=== PATIENT | female | born 1970 | race Caucasian/White ===

== ENCOUNTER 2023-06-10 13:50 | Emergency (ER) | payer OTHER, SELFPAY ==
[2023-06-10 14:05] VITALS: BP 211/92; PULSE 70; RESP 18; TEMP 37.2; O2SAT 96; BMI 48.3
--- NOTE | 2023-06-10 14:16 | ECG_ITS ---
[facility] Test Date: 2023-06-10 Pat Name: NGHIA GRANDE Department: Room: - Gender: Female [employer]ic: : 1970 Requested By: LIANNA VINES Order Number: [id number] Reading MD: YADIEL LOBATO Measurements Intervals [place] Rate: 60 P: 46 DC: 170 QRS: -38 QRSD: 96 T: -46 QT: 406 QTc: 406 Interpretive Statements 1100 Sinus rhythm 2440 Incomplete right bundle branch block [address] depression [address] & Twave abnormality 5211 Minimal voltage criteria for LVH, may be normal variant 7200 Abnormal left axis deviation 9130 borderline ECG Compared to ECG 05/26/2018 12:45:48 Left ventricular hypertrophy now present ST (T wave) deviation still present Electronically Signed On 06-10-2023 22:47:16 EST by YADIEL LOBATO
--- NOTE | 2023-06-10 14:16 | XR_ITS ---
The [address] [address] Patient Name: NGHIA GRANDE MRN: [id number] date: 1970 Sex: F Assigned Patient Location: ER Current Patient Location: ER Accession/Order Number: [id number] Exam Date: 06/10/2023 14:35 Report Date: 06/10/2023 15:11 At the request of: MATILDA PROCTOR Procedure: XR chest 1V EXAMINATION: XR chest 1V HISTORY: HTN COMPARISON: No relevant comparison available. FINDINGS: LUNGS: No significant pulmonary parenchymal abnormalities. VASCULATURE: No increased pulmonary vasculature. PLEURA: No pneumothorax, effusion, or pleural thickening. CARDIAC: No cardiomegaly or cardiac silhouette abnormality. MEDIASTINUM: No visible mass or adenopathy. BONES: No fracture or visible bone lesion. OTHER: Negative. XR/XR chest 1V IMPRESSION: 1. No acute or suspicious findings to account for patient's symptoms. Electronically authenticated by: BHARATH BOSTON Date: 06/10/2023 15:11
[2023-06-10 14:17] VITALS: BP 180/90
--- NOTE | 2023-06-10 14:18 | ED_ITS ---
HPI - Epistaxis General Chief Complaint: Epistaxis Stated Complaint: CONGESTION/NOSE BLEEDING Time Seen by Provider: 06/10/23 14:13 Source: patient Mode of arrival: walk-in Limitations: no limitations Related Data Home Medications Medication Instructions Recorded Confirmed atenolol 100 mg tablet 100 mg PO Q12H 06/10/23 06/10/23 hydrochlorothiazide 25 mg tablet 25 mg PO Q24H 06/10/23 06/10/23 Allergies Allergy/AdvReac Type Severity Reaction Status Date / Time ketorolac [From Toradol] AdvReac Mild hot flash Verified 06/10/23 14:10 Penicillins AdvReac Unknown Verified 06/10/23 14:10 Review of Systems ROS Narrative 52 year old female presents to the ED fo r epistaxis. Onset was this afternoon. Her BP was elevated upon arrival. States she has been under a lot of stress. States she has been taking her BP medication as directed. Denies BENITEZ, vision changes, weakness, dizziness. Denies CP, SOB, back pain. Constitutional Denies: fever or chills Ears, nose, mouth, and throat Reports: nasal congestion and nose bleeds; Denies: throat pain, neck pain, ear pain or ear discharge Cardiovascular Denies: chest pain, palpitations, edema, swelling of feet/ankles or lightheadedness Respiratory Denies: shortness of breath or cough Gastrointestinal Denies: abdominal pain, nausea, vomiting or diarrhea Musculoskeletal Denies: back pain or neck pain Neurological Denies: headache, numbness in extremities, weakness in extremities, lack of coordination, dizziness or slurred speech PFSH PFSH Social History Smoking status: Former smoker Exam Constitutional Vital Signs, click to edit/add: Last Vital Signs Temp 99.0 F 06/10/23 14:05 Pulse 70 06/10/23 14:05 Resp 18 06/10/23 14:05 BP 140/69 06/10/23 15:22 Pulse Ox 96 06/10/23 14:05 O2 Del Method Room Air 06/10/23 14:05 Common normals: no apparent distress and oriented x3 General appearance: cooperative [facility] Common normals: normocephalic Face and sinus: normal facial exam Nose: epistaxis (No active bleeding. Likely epistaxis site noted to left medial nare.) External ear: external ears normal Mouth: oral and palatal mucosa normal, lip normal and tongue normal Throat: posterior oropharynx normal and uvula midline Eye Common normals: PERRL, EOMs intact bilaterally, conjunctivae normal and no scleral icterus Neck & C-Spine Common normals: supple Chest Chest: symmetrical chest wall rise Respiratory Common normals: normal respiratory effort Effort & inspection: able to speak in complete sentences and symmetric chest movement Cardio Common normals: regular rate and regular rhythm Neuro Common normals: oriented x3 and CN's II-XII intact bilaterally Sensorium/orientation: awake and alert Speech: speech normal Gait (neuro): normal gait Motor exam: strength 5/5 throughout Course Vital Signs Vital signs: Vital Signs Temperature 99.0 F 06/10/23 14:05 Pulse Rate 70 06/10/23 14:05 Respiratory Rate 18 06/10/23 14:05 Blood Pressure 211/92 H 06/10/23 14:05 Pulse Oximetry 96 06/10/23 14:05 Oxygen Delivery Method Room Air 06/10/23 14:05 Temperature 99.0 F 06/10/23 14:05 Pulse Rate 70 06/10/23 14:05 Respiratory Rate 18 06/10/23 14:05 Blood Pressure 140/69 06/10/23 15:22 Pulse Oximetry 96 06/10/23 14:05 Oxygen Delivery Method Room Air 06/10/23 14:05 MDM - Epistaxis MDM Narrative Medical decision making narrative: Silver nitrate was utilized to cauterize an area in the left nare. She tolerated it well. She was given IV hydralazine with improvement in her BP. Laboratory studies were unremarkable. She was encouraged to take her BP medication as directed. Follow up with pcp and ENT for a recheck, further evaluation and treatment. Medical Records Attestation: I reviewed the patient's medical records. Lab Data Attestation: I reviewed the patient's lab results. Labs: Lab Results 06/10/23 Range/Units 14:25 WBC 6.7 (4.0-11.0) 10^3/uL RBC 4.48 (4.20-5.40) 10^6/uL Hgb 14.5 (12.0-16.0) g/dL Hct 42.7 (36.0-48.0) % MCV 95.3 (81.0-99.0) fL MCH 32.4 (26.7-34.0) pg MCHC 34.0 (29.9-35.2) g/dL RDW 11.5 (11.0-15.0) % Plt Count 195 (150-450) 10^3/uL MPV 13.0 (9.5-13.5) fL Neut % (Auto) 75.6 H (43.0-75.0) % Lymph % (Auto) 14.8 L (20.5-60.0) % [place] % (Auto) 8.2 (1.7-12.0) % Eos % (Auto) 1.0 (0.9-7.0) % Baso % (Auto) 0.3 (0.2-2.0) % Neut # (Auto) 5.1 (1.4-6.5) 10^3/uL Lymph # (Auto) 1.0 L (1.2-3.8) 10^3/uL [place] # (Auto) 0.6 (0.3-0.8) 10^3/uL Eos # (Auto) 0.1 (0.0-0.7) 10^3/uL Baso # (Auto) 0.0 (0.0-0.1) 10^3/uL Abs Immat Gran (auto) 0.01 (0.00-0.03) 10^3/uL Imm/Tot Granulo (auto) 0.1 (0.0-0.5) % Sodium 134 L (136-145) mmol/L Potassium 4.5 (3.5-5.1) mmol/L Chloride 101 (98-107) mmol/L Carbon Dioxide 27.5 (21.0-32.0) mmol/L Anion Gap 10.0 BUN 13.0 (7.0-18.0) mg/dL Creatinine 0.81 (0.55-1.02) mg/dL Est GFR ( Amer) >60 (>=60) Est GFR (Non-Af Amer) >60 (>=60) BUN/Creatinine Ratio 16.0 Glucose 280 H (74-106) mg/dL Calcium 9.1 (8.5-10.1) mg/dL Total Bilirubin 0.4 (0.2-1.0) mg/dL AST 30 (15-37) U/L ALT 37 (14-59) U/L Alkaline Phosphatase 103 (46-116) U/L Total Protein 7.5 (6.4-8.2) g/dL Albumin 3.0 L (3.4-5.0) g/dL Globulin 4.5 g/dL Albumin/Globulin Ratio 0.7 Imaging Data Chest x-ray: Attestation: I have reviewed the pertinent imaging results. Radiologist's impression: ITS Impressions Chest X-Ray 06/10/23 14:16 IMPRESSION: 1. No acute or suspicious findings to account for patient's symptoms. Electronically authenticated by: BHARATH BOSTON Date: 06/10/2023 15:11 ECG Data Attestation: ?I have reviewed the pertinent ECG results. Interpretation: Measurements Intervals [place] Rate: 60 P: 46 MN: 170 QRS: -38 QRSD: 96 T: -46 QT: 406 QTc: 406 Interpretive Statements 1100 Sinus rhythm 2440 Incomplete right bundle branch block [address] depression [address] & Twave abnormality 5211 Minimal voltage criteria for LVH, may be normal variant 7200 Abnormal left axis deviation 9130 borderline ECG No previous ECG available for comparison Critical Care Time Critical Care Time Critical Care Time: Yes Total Critical Care Time: 30 Attestation: Due to the high probability of sudden and clinically significant deterioration in the patient's condition she required the highest level of my preparedness to intervene urgently I provided critical care time including documentation time, medication orders and management, reevaluation, vital sign assessment, ordering and reviewing of lab tests, ordering and reviewing of x-ray studies, and admission orders. Discharge Plan Discharge Chief Complaint: Epistaxis Clinical Impression: Epistaxis, Hypertension Patient Disposition: Home, Self-Care Time of Disposition Decision: 15:26 Condition: Good Mode of Transportation: Private Vehicle Prescriptions / Home Meds: No Action atenolol 100 mg tablet 100 mg PO Q12H hydrochlorothiazide 25 mg tablet 25 mg PO Q24H Instructions: Nosebleed (ED), Hypertension (ED) Stand Alone Forms: Portal Instructions Referrals: LIANNA VINES [Primary Care Provider] - 1 week Francisca Conrad MD [Physician] - 1 week Discharge Date/Time: 06/10/23 15:37
[2023-06-10 14:37] LABS: Basophils Percent Auto 0.3 % (0.2-2.0); Eosinophils Absolute Auto 0.1 10^3/uL (0.0-0.7); Hematocrit 42.7 % (36.0-48.0); Hemoglobin 14.5 g/dL (12.0-16.0); Immature Granulocytes Abs Auto 0.01 10^3/uL (0.00-0.03); Immature Granulocytes Pct Auto 0.1 % (0.0-0.5); Lymphocytes Percent Auto 14.8 % (20.5-60.0); Mean Corpuscular Hemoglobin 32.4 pg (26.7-34.0); Mean Corpuscular Volume 95.3 fL (81.0-99.0); Monocytes Absolute Auto 0.6 10^3/uL (0.3-0.8); Monocytes Percent Auto 8.2 % (1.7-12.0); Neutrophils Absolute Auto 5.1 10^3/uL (1.4-6.5); Neutrophils Percent Auto 75.6 % (43.0-75.0); Platelet Count 195 10^3/uL (150-450); Red Blood Count 4.48 10^6/uL (4.20-5.40); Red Cell Distribution Width 11.5 % (11.0-15.0); White Blood Count 6.7 10^3/uL (4.0-11.0)
[2023-06-10] MEDS: HYDRALAZINE HCL 20 MG/ML VIAL 10 MG IVP (14:38)
[2023-06-10] MEDS: SILVER NITRATE APPLICATOR STICK 1 APPLIC TOPICAL (14:38)
[2023-06-10 14:45] VITALS: BP 156/88
[2023-06-10 14:50] LABS: Alanine Aminotransferase 37 U/L (14-59); Albumin Globulin Ratio 0.7; Alkaline Phosphatase 103 U/L (46-116); Aspartate Amino Transferase 30 U/L (15-37); Bilirubin Total 0.4 mg/dL (0.2-1.0); Calcium 9.1 mg/dL (8.5-10.1); Carbon Dioxide 27.5 mmol/L (21.0-32.0); Chloride 101 mmol/L (98-107); Estimated GFR (African America >60 (>=60); Estimated GFR (Non-African Ame >60 (>=60); Globulin 4.5 g/dL; Glucose 280 mg/dL (74-106); Potassium 4.5 mmol/L (3.5-5.1); Sodium 134 mmol/L (136-145); Total Protein 7.5 g/dL (6.4-8.2)
[2023-06-10 15:22] VITALS: BP 140/69
== END 2023-06-10 15:37 | disposition home or self-care (01) ==
PROVIDERS: Nurse Practitioner Family; Emergency Provider Emergency Medicine; PCP Family Medicine
DX: R04.0 Epistaxis (principal); I10 Essential (primary) hypertension; Z87.891 Personal history of nicotine dependence
CPT/HCPCS: 30901; 36415; 71045; 80053; 85025; 93005; 96374; 99285; J0360

== ENCOUNTER 2024-04-07 17:47 | Emergency (ER) | payer OTHER, SELFPAY ==
[2024-04-07 17:48] VITALS: BP 129/89; PULSE 76; TEMP 37.1; O2SAT 96; BMI 39.1
--- NOTE | 2024-04-07 17:49 | ECG_ITS ---
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
--- OUTSIDE RECORDS SUMMARY | 2024-04-07 17:55 | XMS_ITS | CCD ---
Author Organization [facility] Care Team Providers Care Barrel Inspector Tight Name Role Phone LIANNA VINES Primary Care Unavailable PAY, KAMRAN Admitting Unavailable PAY, KAMRAN Attending Unavailable LIANNA TRAN V Consulting Unavailable PAY, KAMRAN Consulting Unavailable REJI, SAUL Consulting Unavailable DO Lianna Vines Primary Care Provider [phone] JJ Ravi Emergency Provider Community, Outreach Attending Provider [phone] Lianna Vines Unavailable Lianna Vines Primary Care Unavailable Community, Outreach Attending Unavailable Community, Outreach Admitting Unavailable Allergies Allergy Classification Reported Allergen(s) Allergy Type Date of Onset Reaction(s) Facility (20 sources) Ketorolac Drug Allergy 7 blotchy skin [facility] Repository (4 sources) Penicillins Drug allergy (disorder) 7 Unknown Reaction, Unknown Reaction, hives [facility] Repository (4 sources) Ketorolac; Translations: [ketorolac] Drug Allergy 2 Unknown Reaction, Unknown Reaction, blotchy skin [facility] (20 sources) [facility] ([facility]) Penicillins Drug allergy (disorder) 2 [facility] Repository Medications Current Medications Medication Drug Class(es) Dates Sig (Normalized) Sig (Original) ALPRAZolam 0.25 mg oral tablet (20 sources) Benzodiazepine Start: 06-19-2023 End: 08-21-2023 Alprazolam (Xanax) 0.25 mg tablet Active 0.25 MG PO EVERY 8-12 HOURS August 21, 2023 9:14am Start: 05-28-2011 Xanax 0.25 MG 1 tablet Orally q 8-12 hours prn anxiety for 7 days May, Active Aspir-81 81 MG (20 sources) take 1 tablet by mouth once daily Aspir-81 81 MG 1 tablet Orally Once a day Active aspirin 81 mg delayed release oral tablet (2 sources) Platelet Aggregation Inhibitor, Nonsteroidal Anti-inflammatory Drug Start: 06-19-2023 take 1 tablet by mouth once daily Aspirin Active 81 MG PO Daily June 19, 2023 1:00am FreeTextSi tablet Orally Once a day; Note: Source Status: Taking; Provider: Marie Pop ( ) atenolol 100 mg oral tablet (20 sources) beta-Adrenergic Roamna Start: 08-21-2023 take 100 mg by mouth once daily Atenolol Active 100 MG PO Daily August 21, 2023 9:31am Start: 07-21-2023 End: 08-21-2023 take 2 tablets by mouth once daily Atenolol Discontinued 0 .ROUTE .COMPLEX 180 July 21, 2023 1:20pm August 21, 2023 9:33am TAKE 2 TABLETS BY MOUTH DAILY Start: 06-19-2023 End: 07-21-2023 take 2 tablets by mouth once daily Atenolol Discontinued 0 PO Daily June 19, 2023 12:09pm July 21, 2023 1:20pm take 2 of the 100 MG tablets together orally daily; Start: 03-20-2021 End: 06-19-2023 take 200 mg by mouth once daily Atenolol Discontinued 200 MG PO Daily March 20, 2021 1:00am June 19, 2023 12:10pm take 2 tablets by mo [facility] once daily Atenolol 100 MG Take 2 tablets by mouth once daily for 90 days Active docosahexaenoic acid 144 mg / eicosapentaenoic acid 216 mg / vitamin e 2 unt oral capsule (2 sources) Start: 06-19-2023 take 2 capsules by mouth once daily Dodge-3 Fatty Acids-Fish Oil (Fish Oil) 360-1,200 mg capsule Active 2 CAP PO Daily June 19, 2023 1:00am ferrous sulfate 325 mg delayed release oral tablet (20 sources) Start: 06-19-2023 End: 08-21-2023 take 325 mg by mouth once daily Ferrous Sulfate Active 325 MG PO Daily August 21, 2023 9:14am Start: 10-31-2016 take 2 tablets by mo [facility] every twenty-four hours Ferrous Sulfate 325 (65 Fe) MG 2 tablets Orally Once a day Oct, Active Start: 10-31-2016 take 2 tablets by mouth once d aily Ferrous Sulfate 325 (65 Fe) MG 2 tablets Orally Once a day Oct, Active Fish Oils (20 sources) Fish Oil Active hydroCHLOROthiazide 25 mg oral tablet (20 sources) Thiazide Diuretic Start: take 1 tablet by mouth once daily as needed Hydrochlorothiazide Active 0 .ROUTE .COMPLEX 90 September 29, 2023 1:07pm TAKE 1 TABLET BY MOUTH DAILY NEEDED Start: 10-23-2015 End: 09-29-2023 take 25 mg by mouth once daily Hydrochlorothiazide Discontinued 25 MG PO Daily March 20, 2021 1:00am September 29, 2023 1:07pm Magnesium (4 sources) Start: 08-21-2023 take 500 mg by mouth once daily Magnesium Active 500 MG PO Daily August 21, 2023 9:15am Start: 06-19-2023 End: 08-21-2023 take 250 mg by mouth twice daily Magnesium Discontinued 250 MG PO Twice daily June 19, 2023 1:00am August 21, 2023 9:18am Multivitamin preparation (20 sources) Start: 06-19-2023 take 1 tablet by mouth once daily Multivitamin Active 1 TAB PO Daily June 19, 2023 1:00am Multivitamin Act lucia valsartan 320 mg oral tablet (20 sources) Angiotensin 2 Receptor Romana Start: 08-21-2023 take 320 mg by mouth once daily Valsartan Active 320 MG PO Daily August 21, 2023 9:33am Start: 07-21-2023 End: 08-21-2023 take 1 tablet by mouth once daily Valsartan Discontinued 0 .ROUTE .COMPLEX July 21, 2023 1:20pm August 21, 2023 9:33am TAKE 1 TABLET BY MOUTH DAILY Start: 06-10-2023 End: 07-21-2023 take 1 tablet by mouth once daily Valsartan Discontinued 320 MG PO Daily June 19, 2023 12:09pm July 21, 2023 1:20pm FreeTextSi tablet Orally Once a day; Note: Source Status: Refill; Refills: 1; Qty: 90 Tablet; Provider: Marie Cruz Start: 03-26-2021 take 1 tablet by epi th every twenty-four hours Valsartan 320 MG 1 tablet Orally Once a day for 90 days Mar, Active Start: 03-26-2021 take 1 tablet by epi th every twenty-four hours Valsartan 160 MG 1 tablet Orally Once a day for 30 day(s) Mar, Active Start: 03-26-2021 take 1 tablet by epi th every twenty-four hours Valsartan 80 MG 1 tablet Orally Once a day for 30 day(s) Mar, Active vitamin B12 (11 sources) Vitamin B12 Start: 08-21-2023 take 3000 ug by mouth once daily Cyanocobalamin (Vitamin B-12) Active 3000 MCG PO Daily August 21, 2023 12:00am Vitamin B12 Acti ve vitamin e 450 mg oral capsule (20 sources) Start: 06-19-2023 take 670 mg by mouth once daily Vitamin E Active 670 MG PO Daily June 19, 2023 1:00am Vitamin E Active Completed/Discontinued Medications Medication Drug Class(es) Dates Sig (Normalized) Sig (Original) azithromycin 250 mg oral tablet (5 sources) Macrolide Antimicrobial Start: 10-31-2016 Zithromax Z-Pradip 250 MG 2 tablets on the first day, then 1 tablet daily for 4 days Orally Once a day for 5 day(s) Oct, Not-Taking cephalexin 500 mg oral capsule (3 sources) Cephalosporin Antibacterial Start: 06-03-2021 End: 06-19-2023 take 1000 mg by mouth twice daily Cephalexin Discontinued 1000 MG PO Twice daily 40 June 03, 2021 1:00am June 19, 2023 11:46am clotrimazole 10 mg oral lozenge (2 sources) Azole Antifungal Start: 06-11-2023 End: 06-12-2023 Clotrimazole Discontinued 0 PO Five times daily 35 June 11, 2023 1:00am June 12, 2023 9:05am dissolve one 10 MG wally on the tongue orally five times daily; FLUoxetine 20 mg oral capsule (20 sources) Serotonin Reuptake Inhibitor Start: 03-20-2021 End: 06-19-2023 take 40 mg by mouth once daily Fluoxetine Discontinued 40 MG PO Daily March 20, 2021 1:00am June 19, 2023 11:46am Start: 10-23-2015 take 1 capsule by mo [facility] every twenty-four hours PROzac 40 MG 1 capsule in the morning Orally Once a day Oct, Active predniSONE 20 mg oral tablet (5 sources) predniSONE 20 MG as directed with food Orally 3 a day for 3 days, then 2 a day for 3 days, then 1 a day for 3 days for 9 days Not-Taking Problems Active Problems Problem Classification Problem Date Documented Da te Episodic/Chronic Anxiety disorders (20 sources) Anxiety; Translations: [Anxiety disorder, unspecified] Onset: 03-26-2021 Resolved: 01-02-2022 Chronic Cardiac dysrhythmias (7 sources) Palpitations; Translations: [Palpitations] Onset: 05-28-2018 Resolved: 06-06-2021 06-03-2021 Episodic Diabetes mellitus with complications (3 sources) Type II diabetes mellitus uncontrolled; Translations: [Uncontrolled type 2 diabetes mellitus] 08-21-2023 Chronic Diabetes mellitus without complication (8 sources) Hyperglycemia, unspecified; Translations: [Hyperglycemia] Onset: 03-26-2021 Resolved: 05-08-2021 Episodic Essential hypertension (20 sources) Hypertensive disorder; Translations: [Essential (primary) hypertension] Onset: 03-26-2021 Resolved: 11-26-2021 06-03-2021 Chronic Heart valve disorders (20 sources) Mitral valve prolapse; Translations: [Nonrheumatic mitral (valve) prolapse] Onset: 03-26-2021 Resolved: 05-08-2021 Chronic Nonspecific chest pain (4 sources) Chest pain, unspecified; Translations: [CHEST PAIN UNSPECIFIED] Onset: 05-26-2018 Episodic Other nutritional; endocrine; and metabolic disorders (2 sources) Abnormal weight loss; Translations: [Loss of weight] Onset: 03-26-2021 Resolved: 03-26-2021 Episodic Other nutritional; endocrine; and metabolic disorders (4 sources) Abnormal weight gain Onset: 05-08-2021 Resolved: 11-26-2021 Episodic Other nutritional; endocrine; and metabolic disorders (2 sources) Weight loss; Translations: [Abnormal weight loss] 06-19-2023 Episodic Other screening for suspected conditions (not mental disorders or infectious disease) (2 sources) Encounter for screening mammogram for malignant neoplasm of breast; Translations: [Encounter for screening for malignant neoplasm of colon] Episodic Other upper respiratory disease (2 sources) Bleeding from nose; Translations: [Epistaxis] 06-19-2023 Episodic Other upper respiratory disease (1 source) Epistaxis; Translations: [Epistaxis] 06-19-2023 Episodic Unclassified (2 sources) Intentional weight loss; Translations: [Intentional weight loss] 11-24-2023 Urinary tract infections (4 sources) Urinary tract infectious disease; Translations: [Urinary tract infection, site not specified] Onset: 06-06-2021 Resolved: 06-06-2021 06-03-2021 Episodic Past or Other Problems Problem Classification Problem Date Documented Da te Episodic/Chronic Disorders of teeth and jaw (1 source) Periapical abscess without sinus Onset: 05-16-2021 Resolved: 05-16-2021 Episodic Other aftercare (1 source) Other intermediate (current) drug therapy Onset: 05-08-2021 Resolved: 05-08-2021 Episodic Other lower respiratory disease (1 source) Snoring Onset: 06-06-2021 Resolved: 06-06-2021 Episodic Other upper respiratory disease (1 source) Nasal congestion Onset: 05-16-2021 Resolved: 05-16-2021 Episodic Other upper respiratory disease (1 source) Other specified disorders of nose and nasal sinuses Onset: 05-16-2021 Resolved: 05-16-2021 Episodic Unclassified (1 source) Cough R05.9 Onset: 05-16-2021 Resolved: 05-16-2021 Results Test Name Value Interpretation Reference Range Facility Glucose mean value [Mass/vol ume] in Blood Estimated from glycated hemoglobinon 11-18-2023 Average glucose Estimated from glycated hemoglobin (Bld) [Mass/Vol] 111 mg/dL [facility] - Hematology and Cell countson 11-18-2023 HbA1c (Bld) [Mass fraction] 5.5 % 4.5-6.2 [facility] Comment on above: ADA RECOMMENDED LIMI T 4.0 - 6.0ADA THERAPEUTIC TARGET < 7.0ACTION SUGGESTED> 7.0 Glucose mean value [Mass/vol ume] in Blood Estimated from glycated hemoglobinon 08-15-2023 Average glucose Estimated from glycated hemoglobin (Bld) [Mass/Vol] 148 mg/dL [facility] - Hematology and Cell countson 08-15-2023 HbA1c (Bld) [Mass fraction] 6.8 % 4.5-6.2 [facility] Comment on above: ADA RECOMMENDED LIMI T 4.0 - 6.0ADA THERAPEUTIC TARGET < 7.0ACTION SUGGESTED> 7.0 Basophils Auto (Bld) [#/Vol] on 06-10-2023 Basophils (Bld) [#/Vol] 0.0 10 3/uL 0.0-0.1 [facility] Basophils/100 WBC Auto (Bld) on 06-10-2023 Basophils/100 WBC (Bld) 0.3 % 0.2-2.0 [facility] Eosinophils/100 WBC Auto (Bl d)on 06-10-2023 Eosinophils/100 WBC (Bld) 1.0 % 0.9-7.0 [facility] Erythrocyte distribution wid th Auto (RBC) [Ratio]on 06-10-2023 Erythrocyte distribution width (RBC) [Ratio] 11.5 % 11.0-15.0 [facility] Estimated glomerular filtrat ion rate (GFR) non- Americanon 06-10-2023 GFR/1.73 sq M.predicted among non-blacks MDRD (S/P/Bld) [Vol rate/Area] mL/min/{1.73_m2} >=60 [facility] Globulin Calc (S) [Mass/Vol] on 06-10-2023 Globulin (S) [Mass/Vol] 4.5 g/dL [facility] Hematocrit Auto (Bld) [Volum e fraction]on 06-10-2023 Hematocrit (Bld) [Volume fraction] 42.7 % 36.0-48.0 [facility] Hemoglobin [Mass/volume] in Bloodon 06-10-2023 Hemoglobin (Bld) [Mass/Vol] 14.5 g/dL 12.0-16.0 [facility] Laboratory - Chemistry and C hemistry - challengeon 06-10-2023 Albumin [Mass/Vol] 3.0 g/dL 3.4-5.0 [facility] ALP [Catalytic activity/Vol] 103 U/L 46-116 [facility] ALT [Catalytic activity/Vol] 37 U/L 14-59 [facility] AST [Catalytic activity/Vol] 30 U/L 15-37 [facility] Bilirubin [Mass/Vol] 0.4 mg/dL 0.2-1.0 [facility] Calcium [Mass/Vol] 9.1 mg/dL 8.5-10.1 [facility] Chloride [Moles/Vol] 101 mmol/L 98-107 [facility] CO2 [Moles/Vol] 27.5 mmol/L 21.0-32.0 [facility] Creatinine [Mass/Vol] 0.81 mg/dL 0.55-1.02 [facility] GFR/1.73 sq M.predicted MDRD (S/P/Bld) [Vol rate/Area] mL/min/{1.73_m2} >=60 [facility] Glucose [Mass/Vol] 280 mg/dL 74-106 [facility] Potassium [Moles/Vol] 4.5 mmol/L 3.5-5.1 [facility] Protein [Mass/Vol] 7.5 g/dL 6.4-8.2 [facility] Sodium [Moles/Vol] 134 mmol/L 136-145 [facility] Urea nitrogen [Mass/Vol] 13.0 mg/dL 7.0-18.0 [facility] Urea nitrogen/Creatinine [Mass ratio] 16.0 mg/mg [facility] - Hematology and Cell countson 06-10-2023 Immature granulocytes/100 WBC (Bld) 0.1 % 0.0-0.5 [facility] Leukocytes [#/volume] correc kelvin for nucleated erythrocytes in Blood by Automated counon 06-10-2023 WBC corrected for nucl RBC Auto (Bld) [#/Vol] 6.7 10 3/uL 4.0-11.0 [facility] Lymphocytes Auto (Bld) [#/Vo l]on 06-10-2023 Lymphocytes (Bld) [#/Vol] 1.0 10 3/uL 1.2-3.8 [facility] Lymphocytes/100 WBC Auto (Bl d)on 06-10-2023 Lymphocytes/100 WBC (Bld) 14.8 % 20.5-60.0 [facility] MCH Auto (RBC) [Entitic mass ]on 06-10-2023 MCH (RBC) [Entitic mass] 32.4 pg 26.7-34.0 [facility] MCHC Auto (RBC) [Mass/Vol]on 06-10-2023 MCHC (RBC) [Mass/Vol] 34.0 g/dL 29.9-35.2 [facility] MCV Auto (RBC) [Entitic vol] on 06-10-2023 MCV (RBC) [Entitic vol] 95.3 fL 81.0-99.0 [facility] Monocytes Auto (Bld) [#/Vol] on 06-10-2023 Monocytes (Bld) [#/Vol] 0.6 10 3/uL 0.3-0.8 [facility] Monocytes/100 WBC Auto (Bld) on 06-10-2023 Monocytes/100 WBC (Bld) 8.2 % 1.7-12.0 [facility] Neutrophils Auto (Bld) [#/Vo l]on 06-10-2023 Neutrophils (Bld) [#/Vol] 5.1 10 3/uL 1.4-6.5 [facility] Neutrophils/100 WBC Auto (Bl d)on 06-10-2023 Neutrophils/100 WBC (Bld) 75.6 % 43.0-75.0 [facility] No Panel Informationon 06-10 Eosinophils # (Auto) 0.1 10 3/uL 0.0-0.7 [facility] Immature Granulocyte # (Auto) 0.01 10 3/uL 0.00-0.03 [facility] Platelet mean volume Auto (B ld) [Entitic vol]on 06-10-2023 Platelet mean volume (Bld) [Entitic vol] 13.0 fL 9.5-13.5 [facility] Platelets Auto (Bld) [#/Vol] on 06-10-2023 Platelets (Bld) [#/Vol] 195 10 3/uL 150-450 [facility] RBC Auto (Bld) [#/Vol]on RBC (Bld) [#/Vol] 4.48 10 6/uL 4.20-5.40 [facility] Serum or plasma albumin/glob ulin mass ratioon 06-10-2023 Albumin/Globulin [Mass ratio] 0.7 {ratio} [facility] Serum or plasma anion gap de terminationon 06-10-2023 Anion gap [Moles/Vol] 10.0 mmol/L [facility] Activated partial thrombopla stin time (aPTT) in platelet poor plasma by coagulation aOrdered By: Carlota Ravi on 06-03-2021 aPTT Coag (PPP) [Time] 32.9 s 25.1-36.5 [facility] Automated erythrocytes count in urine sediment (number/area)Ordered By: Carlota Ravi on 06-03-2021 RBC Auto (Urine sed) [#/Area] 1-2 [HPF] [facility] Automated leukocytes count i n urine sediment (number/area)Ordered By: Carlota Ravi on 06-03-2021 WBC Auto (Urine sed) [#/Area] 10-19 [HPF] [facility] Basophils Auto (Bld) [#/Vol] Ordered By: Carlota Ravi on 06-03-2021 Basophils (Bld) [#/Vol] 0.1 10*3/uL 0.0-0.2 [facility] Basophils/100 WBC Auto (Bld) Ordered By: Carlota Ravi on 06-03-2021 Basophils/100 WBC (Bld) 1.4 % [facility] Bilirubin Test strip Ql (U)O rdered By: Carlota Ravi on 06-03-2021 Bilirubin Ql (U) Negative Negative [facility] Blood hemoglobin measurement (mass/volume)Ordered By: Carlota Ravi on 06-03-2021 Hemoglobin (Bld) [Mass/Vol] 15.8 g/dL 11.8-15.4 [facility] Blood leukocytes automated c ount (number/volume)Ordered By: Carlota Ravi on 06-03-2021 WBC (Bld) [#/Vol] 9.5 10*3/uL 4.5-11.0 [facility] Color Auto (U)Ordered By: Preston Ravi on 06-03-2021 Color (U) Yellow Yellow [facility] Creatine kinase [Enzymatic a ctivity/volume] in Serum or PlasmaOrdered By: Carlota Ravi on 06-03-2021 CK [Catalytic activity/Vol] 40 U/L 22-269 [facility] Creatinine and Glomerular fi ltration rate.predicted panel (S/P/Bld)Ordered By: Carlota Ravi on 06-03-2021 Creatinine [Mass/Vol] 0.78 mg/dL 0.44-1.03 [facility] Eosinophils Auto (Bld) [#/Vo l]Ordered By: Carlota Ravi on 06-03-2021 Eosinophils (Bld) [#/Vol] 0.0 10*3/uL 0.0-0.45 [facility] Eosinophils/100 WBC Auto (Bl d)Ordered By: Carlota Ravi on 06-03-2021 Eosinophils/100 WBC (Bld) 0.5 % [facility] Erythrocyte distribution wid th Auto (RBC) [Ratio]Ordered By: Carlota Ravi on 06-03-2021 Erythrocyte distribution width (RBC) [Ratio] 13.0 % 11.9-15.3 [facility] Estimated glomerular filtrat ion rate (GFR) non- AmericanOrdered By: Carlota Ravi on 06-03-2021 GFR/1.73 sq M.predicted among non-blacks MDRD (S/P/Bld) [Vol rate/Area] > 60 mL/Min [facility] Hematocrit Auto (Bld) [Volum e fraction]Ordered By: Carlota Ravi on 06-03-2021 Hematocrit (Bld) [Volume fraction] 46.3 % 34.0-46.4 [facility] Ketones Auto test strip (U) [Mass/Vol]Ordered By: Carlota Ravi on 06-03-2021 Ketones (U) [Mass/Vol] Trace Negative [facility] Laboratory - Chemistry and C hemistry - challengeOrdered By: Carlota Ravi on 06-03-2021 Natriuretic peptide B (Bld) [Mass/Vol] 97.0 pg/mL 5-100 [facility] - CoagulationOrde red By: Carlota Ravi on 06-03-2021 PT Coag (PPP) [Time] 12.1 s 9.0-12.9 [facility] Laboratory - Hematology and Cell countsOrdered By: Carlota Ravi on 06-03-2021 Nucleated RBC/100 WBC (Bld) [Ratio] 0.1 % 0-0.5 [facility] - UrinalysisOrder ed By: Carlota Ravi on 06-03-2021 Hyaline casts LM Ql (Urine sed) 0-8 [LPF] [facility] Lymphocytes Auto (Bld) [#/Vo l]Ordered By: Carlota Ravi on 06-03-2021 Lymphocytes (Bld) [#/Vol] 1.1 10*3/uL 1.00-4.8 [facility] Lymphocytes/100 WBC Auto (Bl d)Ordered By: Carlota Ravi on 06-03-2021 Lymphocytes/100 WBC (Bld) 12.0 % [facility] MCH Auto (RBC) [Entitic mass ]Ordered By: Carlota Ravi on 06-03-2021 MCH (RBC) [Entitic mass] 32.5 pg 24.7-34.3 [facility] MCHC Auto (RBC) [Mass/Vol]Or dered By: Carlota Ravi on 06-03-2021 MCHC (RBC) [Mass/Vol] 34.0 g/dL 32.0-35.0 [facility] MCV Auto (RBC) [Entitic vol] Ordered By: Carlota Ravi on 06-03-2021 MCV (RBC) [Entitic vol] 95.5 fL 80-100 [facility] Monocytes Auto (Bld) [#/Vol] Ordered By: Carlota Ravi on 06-03-2021 Monocytes (Bld) [#/Vol] 0.5 10*3/uL 0.0-0.8 [facility] Monocytes/100 WBC Auto (Bld) Ordered By: Carlota Ravi on 06-03-2021 Monocytes/100 WBC (Bld) 5.2 % [facility] Neutrophils Auto (Bld) [#/Vo l]Ordered By: Carlota Ravi on 06-03-2021 Neutrophils (Bld) [#/Vol] 7.7 10*3/uL 1.8-7.7 [facility] Neutrophils/100 WBC Auto (Bl d)Ordered By: Carlota Ravi on 06-03-2021 Neutrophils/100 WBC (Bld) 80.9 % [facility] Nitrite Test strip Ql (U)Ord ered By: Carlota Ravi on 06-03-2021 Nitrite Ql (U) Negative Negative [facility] No Panel InformationOrdered By: Carlota Ravi on 06-03-2021 Estimated GFR () > 60 mL/Min [facility] Comment on above: GFR estimated refere nce range: According to KDOQI guidelines, <60 ml/min/1.73m2 is sufficient to diagnose a patient with chronic kidney disease. Pharmacy Creatinine Clearance (Chem 109.96 [facility] Platelet mean volume Auto (B ld) [Entitic vol]Ordered By: Carlota Ravi on 06-03-2021 Platelet mean volume (Bld) [Entitic vol] 10.7 fL 6.3-10.7 [facility] Platelet poor plasma interna tional normalized ratio (INR) by coagulation assay (relatOrdered By: Carlota Ravi on 06-03-2021 INR Coag (PPP) [Relative time] 1.1 {INR} [facility] Comment on above: INR Therapeutic Rang e A) Pre- and Peroperative OAT started two weeks before surgery. NOT HIP SURGERY: 1.5 - 2.5 HIP SURGERY: 2 - 3B) Primary and secondary prevention of venous THROMBOSIS: 2 - 3C) Active venous thrombosis, pulmonary embolismand prevention of recurrent venous thrombosis: 2 - 3D) Prevention of arterial thromboembolismincluding patients with mechanical heart valves: 3 - 4.5 Platelets Auto (Bld) [#/Vol] Ordered By: Carlota Ravi on 06-03-2021 Platelets (Bld) [#/Vol] 256 10*3/uL 150-450 [facility] Protein Auto test strip (U) [Mass/Vol]Ordered By: Carlota Ravi on 06-03-2021 Protein (U) [Mass/Vol] Negative Negative [facility] RBC Auto (Bld) [#/Vol]Ordere d By: Carlota Ravi on 06-03-2021 RBC (Bld) [#/Vol] 4.85 10*6/uL 3.60-5.00 [facility] Serum or plasma calcium lucia urement (mass/volume)Ordered By: Carlota Ravi on 06-03-2021 Calcium [Mass/Vol] 9.8 mg/dL 8.2-10.2 [facility] Serum or plasma chloride evgeny surement (moles/volume)Ordered By: Carlota Ravi on 06-03-2021 Chloride [Moles/Vol] 95 mmol/L 95-114 [facility] Serum or plasma creatine kin ase MB (CKMB)/total creatine kinase (CK) ratio by calculaOrdered By: Carlota Ravi on 06-03-2021 CK.MB Calc [Catalytic fraction] 2.5 % 0.00-2.50 [facility] Serum or plasma creatine kin ase MB measurement (mass/volume)Ordered By: Carlota Ravi on 06-03-2021 CK.MB [Mass/Vol] 1.0 ng/mL 0.6-6.3 [facility] Serum or plasma glucose lucia urement (mass/volume)Ordered By: Carlota Ravi on 06-03-2021 Glucose [Mass/Vol] 135 mg/dL 70-100 [facility] Comment on above: ADA recommended refe rence rangeRandom Glucose Reference Range is dependent on time and content of last meal. Glucose of more than 200 mg/dL in a nonstressed, ambulatory subject supports the diagnosis of Diabetes Mellitus. Serum or plasma potassium me asurement (moles/volume)Ordered By: Carlota Ravi on 06-03-2021 Potassium [Moles/Vol] 3.7 mmol/L 3.5-5.1 [facility] Serum or plasma sodium measu rement (moles/volume)Ordered By: Carlota Ravi on 06-03-2021 Sodium [Moles/Vol] 135 mmol/L 136-146 [facility] Serum or plasma total carbon dioxide measurement (moles/volume)Ordered By: Carlota Ravi on 06-03-2021 CO2 [Moles/Vol] 26.1 mmol/L 22.0-30.0 [facility] Serum or plasma urea nitroge n measurement (mass/volume)Ordered By: Carlota Ravi on 06-03-2021 Urea nitrogen [Mass/Vol] 8 mg/dL 9- [facility] Specific gravity Auto test s trip (U) [Rel density]Ordered By: Carltoa Ravi on 06-03-2021 Specific gravity (U) [Rel density] 1.014 1.001-1.030 [facility] Squamous epithelial cells de tection in urine sediment by light microscopyOrdered By: Carlota Ravi on 06-03-2021 Epithelial cells.squamous LM Ql (Urine sed) 1-2 [HPF] [facility] TSH DL <= 0.005 mIU/L QnOrde red By: Carlota Ravi on 06-03-2021 TSH Qn 1.93 m[IU]/L 0.45-5.33 [facility] Thyroxine (T4) free [Mass/vo lume] in Serum or PlasmaOrdered By: Carlota Ravi on 06-03-2021 Free T4 [Mass/Vol] 0.86 ng/dL 0.61-1.12 [facility] Troponin I.cardiac [Mass/vol ume] in Serum or Plasma by High sensitivity methodOrdered By: Carlota Ravi on 06-03-2021 Troponin I.cardiac High sensitivity method [Mass/Vol] 6 pg/mL 0-15 [facility] Urine bacteria detection by automated methodOrdered By: Carlota Ravi on 06-03-2021 Bacteria Auto Ql (U) None seen None Seen [facility] Urine clarity by refractomet ry automatedOrdered By: Carlota Ravi on 06-03-2021 Clarity Refractometry automated (U) Clear Clear [facility] Urine culture routineOrdered By: Carlota Ravi on 06-03-2021 Bacteria identified Cx Nom (U) 2 Days [facility] Urine glucose measurement by automated test strip (mass/volume)Ordered By: Carlota Ravi on 06-03-2021 Glucose Auto test strip (U) [Mass/Vol] Normal mg/dL Normal [facility] Urine hemoglobin detection b y automated test stripOrdered By: Carlota Ravi on 06-03-2021 Hemoglobin Auto test strip Ql (U) Negative Negative [facility] Urine leukocyte esterase det ection by automated test stripOrdered By: Carlota Briannehenry on 06-03-2021 Leukocyte esterase Auto test strip Ql (U) 3+ Negative [facility] Urobilinogen Auto test strip (U) [Mass/Vol]Ordered By: Carlota Ravi on 06-03-2021 Urobilinogen (U) [Mass/Vol] Normal mg/dL Normal [facility] pH Auto test strip (U)Ordere d By: Carlota Ravi on 06-03-2021 pH (U) 5.0 [pH] 5.0-9.0 [facility] BNPon 05-26-2018 Natriuretic peptide B mass conc (Bld) 160.0 pg/mL Normal <=900.0 [facility] Comment on above: Performed By: #### C MP, BNP, CMADM #### [facility] [address] [place] [address] Sylvie Carney CARDIAC TE 3-6-9on 019 CK enzyme act/vol 38 U/L Normal 30-135 [facility] Comment on above: Performed By: #### C MREP #### [facility] [address] [place] [address] Sylvie Carney CK.MB mass conc 0.46 ng/mL Normal <=2.37 [facility] Comment on above: Performed By: #### C MREP #### [facility] [address] [place], [place] [id number] Sylvie Carney INR Coag RelTime (Bld) SEE BELOW Normal [facility] Comment on above: Result Comment: <0.0 34 ng/ml NEGATIVE 0.034-0.119 INDETERMINATE 0.120 AMI CUT OFF Performed By: #### C MREP #### [facility] [address] [place] [address] Sylvie Carney TROP <0.017 Normal <=0.034 [facility] Comment on above: Performed By: #### C MREP #### [facility] [address] [place] [address] Sylvie Carney CARDIAC TE ADMITon 019 CK enzyme act/vol 51 U/L Normal 30-135 [facility] Comment on above: Performed By: #### C MP, BNP, CMADM #### [facility] [address] [place] [address] Sylvie Carney CK.MB mass conc 0.56 ng/mL Normal <=2.37 [facility] Comment on above: Performed By: #### C MP, BNP, CMADM #### [facility] [address] [place] [address] Sylvie Angelika INR Coag RelTime (Bld) SEE BELOW Normal [facility] Comment on above: Result Comment: <0.0 34 ng/ml NEGATIVE 0.034-0.119 INDETERMINATE 0.120 AMI CUT OFF Performed By: #### C MP, BNP, CMADM #### [facility] [address] [place] [address] Sylvie Carney NICCI 16.0 ng/mL Normal <=61.5 [facility] Comment on above: Performed By: #### C MP, BNP, CMADM #### [facility] [address] [place] [address] Sylvie Angelika TROP <0.012 Normal <=0.034 [facility] Comment on above: Performed By: #### C MP, BNP, CMADM #### [facility] [address] [place] [address] Sylvie Carney CBC AUTO DIFFon 05-26-2018 Basophils #/vol (Bld) 0.1 103/ul Normal 0.0-0.1 [facility] Comment on above: Performed By: #### C BC #### [facility] [address] [place] [address] Sylvie Angelika Basophils/100 WBC (Bld) 0.5 % Normal 0.2-2.0 [facility] Comment on above: Performed By: #### C BC #### [facility] [address] [place] [address] Sylvie Angelika Eosinophils #/vol (Bld) 0.1 103/ul Normal 0.0-0.7 [facility] Comment on above: Performed By: #### C BC #### [facility] [address] [id number] Sylvieoscar Velardeen Eosinophils/100 WBC (Bld) 1.0 % Normal 0.9-7.0 [facility] Comment on above: Performed By: #### C BC #### [facility] [address] [id number] Sylvieoscar Carney Erythrocyte distribution width Ratio (RBC) 12.6 % Normal 11.0-15.0 [facility] Comment on above: Performed By: #### C BC #### [facility] [address] [place], [place] [id number] Sylvieoscar Carney Hematocrit Volume Fraction (Bld) 42.1 % Normal 36.0-48.0 [facility] Comment on above: Performed By: #### C BC #### [facility] [address] [place] [address] Sylvieoscar Carney Hemoglobin mass conc (Bld) 14.3 g/dL Normal 12.0-16.0 [facility] Comment on above: Performed By: #### C BC #### [facility] [address] [place], [place] [id number] Sylvie Angelika IG # 0.02 10e3/ul Normal 0.00-0.03 [facility] Comment on above: Performed By: #### C BC #### [facility] [address] [place] [address] Sylvie Angelika IG % 0.2 % Normal 0.0-0.5 [facility] Comment on above: Performed By: #### C BC #### [facility] [address] [place] [address] Sylvie Angelika Lymphocytes #/vol (Bld) 2.8 103/ul Normal 1.2-3.8 [facility] Comment on above: Performed By: #### C BC #### [facility] [address] [place], [place] [id number] Sylvie Angelika Lymphocytes/100 WBC (Bld) 28.7 % Normal 20.5-60.0 [facility] Comment on above: Performed By: #### C BC #### [facility] [address] [place] [address] Sylvie Carney MANUAL DIFF REQ NO Normal [facility] Comment on above: Performed By: #### C BC #### [facility] [address] [place] [address] Sylvie Carney MCH Entitic mass (RBC) 31.7 pg Normal 26.7-34.0 [facility] Comment on above: Performed By: #### C BC #### [facility] [address] [place] [address] Sylvie Carney MCHC mass conc (RBC) 34.0 g/dL Normal 29.9-35.2 [facility] Comment on above: Performed By: #### C BC #### [facility] [address] [place] [address] Sylvie Carney MCV Entitic volume (RBC) 93.3 fL Normal 81.0-99.0 [facility] Comment on above: Performed By: #### C BC #### [facility] [address] [place] [address] Sylvie Carney Monocytes #/vol (Bld) 1.0 103/ul Critically high 0.3-0.8 [facility] Comment on above: Performed By: #### C BC #### [facility] [address] [place], [place] [id number] Sylvie Carney Monocytes/100 WBC (Bld) 10.1 % Normal 1.7-12.0 [facility] Comment on above: Performed By: #### C BC #### [facility] [address] [place] [address] Sylvie Carney Neutrophils #/vol (Bld) 5.8 103/ul Normal 1.4-6.5 [facility] Comment on above: Performed By: #### C BC #### [facility] [address] [place] [address] Sylvie Angelika Neutrophils/100 WBC (Bld) 59.5 % Normal 43.0-75.0 [facility] Comment on above: Performed By: #### C BC #### [facility] [address] [place] [address] Sylvie Carney Platelet mean volume Entitic volume (Bld) 11.8 fL Normal 9.5-13.5 [facility] Comment on above: Performed By: #### C BC #### [facility] [address] [place] [address] Sylvie Carney Platelets #/vol (Bld) 345 103/ul Normal 150-450 [facility] Comment on above: Performed By: #### C BC #### [facility] [address] [place] [address] Sylvie Carney RBC #/vol (Bld) 4.51 106/ul Normal 4.20-5.40 [facility] Comment on above: Performed By: #### C BC #### [facility] [address] [place] [address] Sylvie Carney WBC #/vol (Bld) 9.8 103/ul Normal 4.0-11.0 [facility] Comment on above: Performed By: #### C BC #### [facility] [address] [place] [address] Sylvie Carney D-DIMERon 05-26-2018 D-DIMER COMMENTS SEE BELOW Normal [facility] Comment on above: Result Comment: Incr eases in D-Dimer concentration observed with thromboembolic events can be variable due to localization, size, and age of the thrombus. Therefore, a thromboembolic event cannot be diagnosed with certainty on the basis of the reference range. D-Dimers may also be elevated for a variety of disorders including: advanced age, , coronary disease, cancer, liver disease, infection, inflammation, hematoma, DIC, trauma, post-surgery, diabetes, thrombolytic or anticoagulant therapy, stress, and generalizd hospitalization. Performed By: #### D DIM #### [facility] [address] [place], [place] [id number] Sylvie Carney Fibrin D-dimer FEU IA mass conc (Bld) 0.20 ug/mL Normal 0.19-0.50 [facility] Comment on above: Performed By: #### D DIM #### [facility] [address] [place], [place] [id number] Sylvie Carney PROF 14(COMP METB)on 019 Albumin mass conc 3.9 g/dL Normal 3.5-5.0 [facility] Comment on above: Performed By: #### C MP, BNP, CMADM #### [facility] [address] [address] Sylvie Angelika Albumin/Globulin mass ratio 1.0 {ratio} Normal [facility] Comment on above: Performed By: #### C MP, BNP, CMADM #### [facility] [address] [address] Sylvie Carney ALP enzyme act/vol 83 U/L Normal 38-126 [facility] Comment on above: Performed By: #### C MP, BNP, CMADM #### [facility] [address] [place] [address] Sylvie Velardeen ALT enzyme act/vol 89 U/L Critically high 9-52 [facility] Comment on above: Performed By: #### C MP, BNP, CMADM #### [facility] [address] [place] [address] Sylvieoscar Carney Anion gap molar conc 14.7 mmol/L Normal [facility] Comment on above: Performed By: #### C MP, BNP, CMADM #### [facility] [address] [place] [address] Sylvie Angelika AST enzyme act/vol 61 U/L Critically high 14-36 [facility] Comment on above: Performed By: #### C MP, BNP, CMADM #### [facility] [address] [address] Sylvie Carney Bilirubin Ql (U) 0.6 mg/dL Normal 0.2-1.3 [facility] Comment on above: Performed By: #### C MP, BNP, CMADM #### [facility] [address] [place] [address] Sylvie Angelika Calcium mass conc 9.1 mg/dL Normal 8.4-10.2 [facility] Comment on above: Performed By: #### C MP, BNP, CMADM #### [facility] [address] [place] [address] Sylvie Angelika Chloride molar conc 98 mmol/L Normal 98-107 [facility] Comment on above: Performed By: #### C MP, BNP, CMADM #### [facility] [address] [address] Sylvie Angelika CO2 molar conc 26.2 mmol/L Normal 22.0-30.0 [facility] Comment on above: Performed By: #### C MP, BNP, CMADM #### [facility] [address] [address] Sylvie Angelika Creatinine mass conc 0.83 mg/dL Normal 0.52-1.04 [facility] Comment on above: Performed By: #### C MP, BNP, CMADM #### [facility] [address] [place] [address] Sylvie Angelika EGFR-AF MICRONESIAN >60 Normal >=60 [facility] Comment on above: Performed By: #### C MP, BNP, CMADM #### [facility] [address] [address] Sylvie Angelika EGFR-NON AF MICRONESIAN >60 Normal >=60 [facility] Comment on above: Performed By: #### C MP, BNP, CMADM #### [facility] [address] [place] [address] Sylvie Angelika Globulin mass conc (S) 4.1 g/dL Normal [facility] Comment on above: Performed By: #### C MP, BNP, CMADM #### [facility] [address] [address] Sylvie Angelika Glucose mass conc 138 mg/dL Critically high 74-106 [facility] Comment on above: Performed By: #### C MP, BNP, CMADM #### [facility] [address] [place] [address] Sylvie Angelika Potassium molar conc 3.9 mmol/L Normal 3.4-5.0 [facility] Comment on above: Performed By: #### C MP, BNP, CMADM #### [facility] [address] [place] [address] Sylvie Angelika Protein mass conc 8.0 g/dL Normal 6.1-8.2 [facility] Comment on above: Performed By: #### C MP, BNP, CMADM #### [facility] [address] [place] [address] Sylvieoscar Carney Sodium molar conc 135 mmol/L Critically low 137-145 [facility] Comment on above: Performed By: #### C MP, BNP, CMADM #### [facility] [address] [place] [address] Sylvie Angelika Urea nitrogen mass conc 6.0 mg/dL Critically low 7.0-17.0 [facility] Comment on above: Performed By: #### C MP, BNP, CMADM #### [facility] [address] [place] [address] Sylvie Angelika Urea nitrogen/Creatinine mass ratio 7.2 mg/mg Normal [facility] Comment on above: Performed By: #### C MP, BNP, CMADM #### [facility] [address] [place] [address] Sylvieoscar Velardeen TSHon 05-26-2018 Thyrotropin Qn 4.235 uIU/mL Normal 0.470-4.680 [facility] Comment on above: Performed By: #### T SH #### [facility] [address] [place] [address] Sylvie Angelika Thyrotropin Qn SEE BELOW Normal [facility] Comment on above: Result Comment: <0.3 4 UIU/ml HYPERTHYROID 0.34-5.60 UIU/ml EUTHYROID >5.60 UIU/ml HYPOTHYROID Performed By: #### T SH #### [facility] [address] [place] [address] Sylvie Angelika XR CHEST 2 Von 05-26-2018 XR CHEST [address] [place] [address] Patient: LILIANA ZACARIAS Exam Date: 05/26/2018 : 1970 Gender:F Ordering : PAIGE GIBSON Admission #: [id number] Family : DR KAMRAN HALE . Order #: [id number] CLICK HERE TO VIEW EXAM RADIOLOGY REPORT PROCEDURE: RADIOGRAPH CHEST 2 VIEWS COMPARISON: None. INDICATIONS: Acute chest pain and irregular heartbeat FINDINGS: LUNGS: No significant pulmonary parenchymal abnormalities. VASCULATURE: No increased pulmonary vasculature. PLEURA: No pneumothorax, effusion, or pleural thickening. CARDIAC: No cardiomegaly or cardiac silhouette abnormality. MEDIASTINUM: No visible mass or adenopathy. BONES: No fracture or visible bone lesion. OTHER: Negative. CONCLUSION: No acute disease. Dictated by: Lianna Tran M.D. on 05/26/2018 at 14:18 Approved by: Lianna Tran M.D. on 05/26/2018 at 14:19 Normal [facility] Vital Signs Date Time Vital Sign Value Performing Clinician Facility 11-24-2023 09:31-0400 Body height 165.1 cm [facility] 11-24-2023 09:31-0400 Body mass index (BMI) [Ratio] 40.9 kg/m2 [facility] 11-24-2023 09:31-0400 Body temperature 98.1 [degF] [facility] 11-24-2023 09:31-0400 Body weight 111.58 kg [facility] 11-24-2023 09:31-0400 Diastolic blood pressure 86 mm[Hg] [facility] 11-24-2023 09:31-0400 Heart rate 73 /min [facility] 11-24-2023 09:31-0400 SaO2% (BldA) [Mass fraction] 99 % [facility] 11-24-2023 09:31-0400 Systolic blood pressure 132 mm[Hg] [facility] 06-19-2023 11:01-0500 Diastolic blood pressure 90 mm[Hg] [facility] 06-19-2023 11:01-0500 Systolic blood pressure 142 mm[Hg] [facility] 06-19-2023 09:30-0500 Body height 165.1 cm [facility] 06-19-2023 09:30-0500 Body mass index (BMI) [Ratio] 45.1 kg/m2 [facility] 06-19-2023 09:30-0500 Body temperature 97.2 [degF] [facility] 06-19-2023 09:30-0500 Body weight 122.92 kg [facility] 06-19-2023 09:30-0500 Heart rate 58 /min [facility] 06-19-2023 09:30-0500 Respiratory rate 18 /min [facility] 06-19-2023 09:30-0500 SaO2% (BldA) [Mass fraction] 95 % [facility] 09-16-2022 11:10-0400 Body height 165.1 cm Lianna Vines Other [facility] 06-10-2022 11:10-0500 Body height 165.1 cm Lianna Vines Other [facility] Other 06-10-2022 11:10-0500 Body mass index (BMI) [Ratio] 47.42 kg/m2 Lianna Vines Other [facility] Other 06-10-2022 11:10-0500 Body temperature 97.5 [degF] Lianna Vines Other [facility] Other 06-10-2022 11:10-0500 Body weight 129.28 kg Lianna Vines Other [facility] Other 06-10-2022 11:10-0500 Diastolic blood pressure 88 mm[Hg] Lianna Vines Other [facility] Other 06-10-2022 11:10-0500 SaO2% (BldA) [Mass fraction] 98 % Lianna Vines Other [facility] Other 06-10-2022 11:10-0500 Systolic blood pressure 132 mm[Hg] Lianna Vines Other [facility] Other 02-27-2022 13:30-0500 Body height 165.1 cm Lianna Vines Other [facility] Other 11-26-2021 12:10-0400 Body height 165.1 cm Lianna Joseramy Other [facility] Other 11-26-2021 12:10-0400 Body mass index (BMI) [Ratio] 46.26 kg/m2 Lianna Joseramy Other [facility] Other 11-26-2021 12:10-0400 Body temperature 97.6 [degF] Lianna Vines Other [facility] Other 11-26-2021 12:10-0400 Body weight 126.1 kg Lianna Vines Other [facility] Other 11-26-2021 12:10-0400 Diastolic blood pressure 84 mm[Hg] Lianna Vines Other [facility] Other 11-26-2021 12:10-0400 Respiratory rate 18 /min Lianna Joseramy Other [facility] Other 11-26-2021 12:10-0400 SaO2% (BldA) [Mass fraction] 98 % Lianna Vines Other [facility] Other 11-26-2021 12:10-0400 Systolic blood pressure 142 mm[Hg] Lianna Vines Other [facility] Other 06-06-2021 13:10-0500 Body height 165.1 cm Lianna Vines Other [facility] Other 06-06-2021 13:10-0500 Body mass index (BMI) [Ratio] 46.09 kg/m2 Lianna Vines Other [facility] Other 06-06-2021 13:10-0500 Body temperature 97.4 [degF] Lianna Vines Other [facility] Other 06-06-2021 13:10-0500 Body weight 125.65 kg Lianna Vines Other [facility] Other 06-06-2021 13:10-0500 Diastolic blood pressure 92 mm[Hg] Lianna Vines Other [facility] Other 06-06-2021 13:10-0500 Respiratory rate 18 /min Lianna Vines Other [facility] Other 06-06-2021 13:10-0500 SaO2% (BldA) [Mass fraction] 99 % Lianna Marie Other [facility] Other 06-06-2021 13:10-0500 Systolic blood pressure 158 mm[Hg] Lianna Vines Other [facility] Other 06-03-2021 17:16-0500 Diastolic blood pressure 76 mm[Hg] DO Lianna Vines Work Phone: [facility] 06-03-2021 17:16-0500 Heart rate 50 /min DO Lianna Vines Work Phone: [facility] 06-03-2021 17:16-0500 Respiratory rate 18 /min DO Lianna Vines Work Phone: [facility] 06-03-2021 17:16-0500 SaO2% (BldA) [Mass fraction] 98 % DO Lianna Vines Work Phone: [facility] 06-03-2021 17:16-0500 Systolic blood pressure 130 mm[Hg] DO Lianna Vines Work Phone: [facility] 06-03-2021 13:29-0500 Body temperature 98 [degF] DO Lianna Vines Work Phone: [facility] 06-03-2021 13:27-0500 Body height 165.1 cm DO Lianna Vines Work Phone: [facility] 06-03-2021 13:27-0500 Body mass index (BMI) [Ratio] 44.3 kg/m2 DO Lianna Vines Work Phone: [facility] 06-03-2021 13:27-0500 Body weight 120.9 kg DO Lianna Vines Work Phone: [facility] 05-08-2021 11:30-0500 Body height 165.1 cm Lianna Vines Other [employer] [facility] Other 05-08-2021 11:30-0500 Body mass index (BMI) [Ratio] 44.68 kg/m2 Lianna Vines Other [facility] Other 05-08-2021 11:30-0500 Body temperature 97.6 [degF] Lianna Vines Other [facility] Other 05-08-2021 11:30-0500 Body weight 121.79 kg Lianna Vines Other [facility] Other 05-08-2021 11:30-0500 Diastolic blood pressure 108 mm[Hg] Lianna Vines Other [facility] Other 05-08-2021 11:30-0500 Respiratory rate 18 /min Lianna Vines Other [facility] Other 05-08-2021 11:30-0500 SaO2% (BldA) [Mass fraction] 99 % Lianna Vines Other [facility] Other 05-08-2021 11:30-0500 Systolic blood pressure 164 mm[Hg] Lianna Vines Other [facility] Other 03-26-2021 14:40-0500 Body height 165.1 cm Lianna Vines Other [facility] Other 03-26-2021 14:40-0500 Body mass index (BMI) [Ratio] 43.43 kg/m2 Lianna Vines Other [facility] Other 03-26-2021 14:40-0500 Body temperature 96.3 [degF] Lianna Vines Other [facility] Other 03-26-2021 14:40-0500 Body weight 118.39 kg Lianna Vines Other [facility] Other 03-26-2021 14:40-0500 Respiratory rate 18 /min Lianna Vines Other [facility] Other 03-26-2021 14:40-0500 SaO2% (BldA) [Mass fraction] 98 % Lianna Vines Other [facility] Other Encounters Encounter Date Encounter Type Care Provider Facility Start: 11-24-2023 End: 11-24-2023 ambulatory [facility] Work Phone: Start: 11-24-2023 End: 11-24-2023 Patient encounter procedure [facility] [place] Work Phone: Start: 11-18-2023 Non-patient / Non-visit [facility] [place] Work Phone: Start: 08-21-2023 End: 08-21-2023 ambulatory [facility] Work Phone: Start: 08-21-2023 End: 08-21-2023 Patient encounter procedure [facility] [place] Work Phone: Start: 08-15-2023 Non-patient / Non-visit [facility] Work Phone: Start: 06-19-2023 End: 06-19-2023 Patient encounter procedure [facility] [place] Work Phone: Start: 06-11-2023 Non-patient / Non-visit [facility] Work Phone: Start: 06-10-2023 Non-patient / Non-visit [facility] Work Phone: Start: 06-10-2023 Non-patient / Non-visit [facility] Work Phone: Start: 05-06-2023 End: 05-06-2023 ambulatory Lianna Vines Other [facility] Other Start: 05-06-2023 Telephone encounter Lianna Vines [facility] [place] Start: 03-16-2023 End: 03-16-2023 ambulatory Lianna Vines Other [facility] Other Start: 03-16-2023 Telephone encounter Lianna Vines [facility] [place] Start: 10-15-2022 End: 10-15-2022 ambulatory Lianna Vines Other [facility] Other Start: 10-15-2022 Telephone encounter Lianna Vines [facility] [place] Start: 09-16-2022 End: 09-16-2022 ambulatory Lianna Vines Other [facility] Other Start: 09-16-2022 Telephone encounter Lianna Vines [facility] [place] Start: 07-30-2022 End: 07-30-2022 ambulatory Lianna Vines Other [facility] Other Start: 07-30-2022 Telephone encounter Lianna Vines [facility] [place] Start: 07-10-2022 End: 07-10-2022 ambulatory Lianna Vines Other [facility] Other Start: 07-10-2022 Telephone encounter Lianna Vines [facility] [place] Start: 06-10-2022 End: 06-10-2022 ambulatory Lianna Vines Other [facility] Other Start: 06-10-2022 Office outpatient vi sit 10 minutes Lianna Vines [facility] [place] Start: 06-10-2022 Telephone encounter Lianna Vines [facility] [place] Start: 05-31-2022 End: 05-31-2022 ambulatory Lianna Vines Facility:[facility] Start: 02-27-2022 End: 02-27-2022 ambulatory Lianna Vines Other [facility] Other Start: 02-27-2022 Telephone encounter Lianna Vines [facility] [place] Start: 01-02-2022 End: 01-02-2022 ambulatory Lianna Vines Other [facility] Other Start: 01-02-2022 Telephone encounter Lianna Vines [facility] [place] Start: 11-26-2021 End: 11-26-2021 ambulatory Lianna Vines Other [facility] Other Start: 11-26-2021 Office outpatient vi sit 10 minutes Lianna Vines [facility] [place] Start: 10-02-2021 End: 10-02-2021 ambulatory Lianna Vines Other [facility] Other Start: 10-02-2021 Telephone encounter Lianna Vines [facility] [place] Start: 08-10-2021 End: 08-10-2021 Departed Referred DO Lianna Vines Work Phone: [facility] Start: 08-05-2021 End: 08-05-2021 ambulatory Lianna Vines Other [facility] Other Start: 08-05-2021 Telephone encounter Lianna Vines [facility] [place] Start: 06-11-2021 End: 06-11-2021 ambulatory Lianna Vines Other [facility] Other Start: 06-11-2021 Telephone encounter Lianna Vines [facility] [place] Start: 06-06-2021 End: 06-06-2021 ambulatory Lainna Vines Other [facility] Other Start: 06-06-2021 Office outpatient vi sit 15 minutes Lianna Vines [facility] [place] Start: 06-03-2021 End: 06-03-2021 ambulatory Lianna Vines Other [facility] Other Start: 06-03-2021 Telephone encounter Lianna Vines [facility] [place] Start: 06-03-2021 End: 06-03-2021 Emergency department patient visit DO Lianna Vines Work Phone: [facility] Start: 05-16-2021 End: 05-16-2021 ambulatory Lianna Vines Other [facility] Other Start: 05-16-2021 Telephone encounter Lianna Vines [facility] [place] Start: 05-08-2021 End: 05-08-2021 ambulatory Lianna Vines Other [facility] Other Start: 05-08-2021 Office outpatient vi sit 10 minutes Lianna Vines [facility] [place] Start: 03-26-2021 End: 03-26-2021 ambulatory Lianna Vnies Other [facility] Other Start: 03-26-2021 Office outpatient vi sit 10 minutes Lianna Vines [facility] [place] Start: 03-26-2021 Telephone encounter Lianna Vines [facility] Start: 05-26-2018 End: 05-26-2018 Patient encounter procedure LIANNA VINES Facility:[facility]1 Procedures Date Procedure Procedure Detail Performing Clinician Start: 06-03-2021 Urine culture DO Lianna Vines Work Phone: Start: 06-03-2021 Plain chest X-ray DO Juno beauchamp Marie Work Phone: Plan of Treatment Date Care Activity Detail Author Patient Education Urinary Tract Infections in Adults [facility] Work Phone: Patient referral [facility] Work Phone: Payers Date Payer Category Payer Self-pay [id number] 1970 Unknown [id number] 1961 Self-pay [id number] Unknown [id number] Unknown MMO [id number] Social History Date Type Detail Facility Start: 06-03-2021 Tobacco smoking status NHIS Smoker (finding) [facility] Start: 1970 Sex Assigned At Female F [facility] Sex Assigned At Sex Assigned At Bir th [facility] Other Start: 08-21-2023 Tobacco smoking status KSIS Unknown if ever smoked [facility] Clinical Notes 03-26-2021 to 06-19-2023 Note Date & Type Note Facility 06-19-2023 Evaluation note Authored June 19, 2023 12:3 5pm The above note written by __ _Vivian Lane____ acting as human recorder, note dictated by Dr. Fleming .I performed the above HPI, ROS, and Examination. I formulated and dictated the treatment plan and was present for entire encounter. Lianna Vines D.O. Author Lianna Vines [facility] Authored August 21, 2023 10:19a m The above note written by __ _Vivian Lane____ acting as human recorder, note dictated by Dr. Fleming .I performed the above HPI, ROS, and Examination. I formulated and dictated the treatment plan and was present for entire encounter. Lianna Vines D.O. [facility] Work Phone: [phone] 297-924901-17-2024 Evaluation note* Encounter Date Diagnosis Assessment Notes Treatment Notes Treatment Clinical Notes Apr, HTN (hypertension) (ICD-10 - I10) [facility] Other 11-27-2023 Evaluation note* Encounter Date Diagnosis Assessment Notes Treatment Notes Treatment Clinical Notes Feb, HTN (hypertension) (ICD-10 - I10) [facility] Other 06-28-2023 Evaluation note* Encounter Date Diagnosis Assessment Notes Treatment Notes Treatment Clinical Notes Sep, Anxiety (ICD-10 - F41.9) [facility] Other 05-30-2023 Evaluation note* Encounter Date Diagnosis Assessment Notes Treatment Notes Treatment Clinical Notes August, Anxiety (ICD-10 - F41.9) [facility] Other 05-30-2023 Evaluation note* Encounter Date Diagnosis Assessment Notes Treatment Notes Treatment Clinical Notes August, HTN (hypertension) (ICD-10 - I10) She has been taking her medication daily as directed. She does not check her blood pressure on her own. August, Anxiety (ICD-10 - F41.9) She does continue to use and benefit from the Xanax. Frequent appointments needed due to addiction potential of the medication. I will see her back in three months. Side effects/risks/benefi ts of medication were reviewed. August, Other 11:20 AM - 11:2 5 AM She still has the order for the FOBT testing that was given in May (2022). If she has this test done she is to call for the results. I did recommend she have lab drawn through the [facility] Outreach at some point. [facility] Other 03-23-2023 Evaluation note* Encounter Date Diagnosis Assessment Notes Treatment Notes Treatment Clinical Notes Jun, Anxiety (ICD-10 - F41.9) [facility] Other 02-21-2023 Evaluation note* Encounter Date Diagnosis Assessment Notes Treatment Notes Treatment Clinical Notes May, Anxiety (ICD-10 - F41.9) [facility] Other 02-21-2023 Evaluation note* Encounter Date Diagnosis Assessment Notes Treatment Notes Treatment Clinical Notes May, Palpitation (ICD-10 - R00.2) We discussed her community outreach screening test results today. Her aorta screening ultrasound showed no abdominal aortic aneurysm. Her lower extremity segmental arterial dopscan was reviewed, right arm blood pressure is 217, left is 211. Pressures at the right ankle are 207 using the posterior tibial artery with ankle-breachial index of 1.05, 0.95. Pressures at the left ankle are 227 using the posterior tibial artery with ankle-brachial index of 1.05, 0.95. Wave forms by plethysmography are normal. Impression: No hemodynamically significant peripheral vascular occlusive disease at rest in either lower extremity. The carotid duplex showed no hemodynamically signicant stenosis of either extracranial internal carotid artery. Both vertebral arteries are patent with antegrade flow. May, Hypertension (ICD-10 - I10) At this time she is to continue with above medications daily as directed. She admits she is nervous because she is here in the office today. She is not able to check her blood pressure on her own at home because it makes her too nervous. I did recheck her blood pressure myself and got a reading of 132/88. May, Anxiety (ICD-10 - F41.9) An OARRS report was reviewed no discrepancies noted. Frequent appointments needed due to addiction potential. She does continue to use and benefit from the above medications. Side effects/risks/benefit s of medication were reviewed. I will see her back in three months. May, Hyperglycemia (ICD-10 - R73.9) I did recommend that she have community outreach lab drawn soon, she voices that the next one is scheduled for 07/05/22 and she will call to schedule this. 21 Feb, 2023 Weight gain (ICD-10 - R63.5) She has gained seven pounds since November (2021). May, Breast cancer screening (ICD-10 - Z12.31) I did recommend that she have a mammogram done. She voices that she does not have insurance and is asked to contact the [facility] because there are grants that are available that can help patients to pay for a mammogram. May, Encounter for screening fecal occult blood testing (ICD-10 - Z12.11) I did recommend a colonoscopy but she does not have insurance. I will provide her with an order to have a FOBT test done. She can check with the hospital on the cost of this test. Guidance is given on how to collect the sample and she can call for results 1-2 days after collection for the results if she has the test done. [facility] Other 11-10-2022 Evaluation note* Encounter Date Diagnosis Assessment Notes Treatment Notes Treatment Clinical Notes Feb, Anxiety (ICD-10 - F41.9) [facility] Other 11-10-2022 Evaluation note* Encounter Date Diagnosis Assessment Notes Treatment Notes Treatment Clinical Notes Feb, Anxiety (ICD-10 - F41.9) An OARRS report was reviewed no discrepancies noted. Frequent appointments needed due to addiction potential of medication. She does continue to use and benefit from the Xanax. I will see her back in three months. Side effects/risks/benef its of medication were reviewed. She feels that she is using the Xanax further apart then she was and can go up to a week in between when she uses it. She does use the Fluoxetine daily. She admits she has been in a funk, she has not had any ambition but tomorrow is the anniversary of her dads passing so she feels this is contributing to this. I did recommend that she have lab drawn to be sure her electrolytes are normal and she is not anemic. 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 She is encouraged to begin walking again. Feb, Hypertension, unspecified type (ICD-10 - I10) Provided her with a new prescription for above medications today. Feb, Hyperglycemia (ICD-10 - R73.9) I did recommend that she have lab drawn soon through the [facility] community outreach program. She voices that this has interfered with her denominational [employer] study but this is coming to an end so she will be able to do this soon. Feb, Weight gain (ICD-10 - R63.5) She has not been walking outside but I did recommend that she try and get outside and walk while the weather is nice. Feb, Other 12:34 PM - [facility] Other 09-15-2022 Evaluation note* Encounter Date Diagnosis Assessment Notes Treatment Notes Treatment Clinical Notes Dec, Anxiety (ICD-10 - F41.9) [facility] Other 08-09-2022 Evaluation note* Encounter Date Diagnosis Assessment Notes Treatment Notes Treatment Clinical Notes Nov, Hypertension, unspecified type (ICD-10 - I10) Her blood pressure today was elevated at 142/84. She voices that yesterday when she mentioned she had a doctor appointment today she could feel her pressure going up. I did check this myself and got a similar reading. Suspect she has white coat hypertension. She voices that she gets very nervous when she comes to the office. No medication changes right now. Will continue to monitor. Nov, Weight gain (ICD-10 - R63.5) She has gained 9 pounds since last seen, she voices that it was more than that on her home scale. She has become lazy in the last six weeks and has been dealing with alot of family and work issues. When the weather became warm she stopped walking. She hopes to return to walking when the weather cools. Nov, Anxiety (ICD-10 - F41.9) An OARRS report was reviewed no discrepancies noted. She does continue to use and benefit from the above medication. Frequent appointments needed due to addiction potential of medication. She does continue to use and benefit from the Xanax. I will see her back in three months. Side effects/risks/benefi ts of medication were reviewed. Nov, Other She voices that she did try to schedule an appointment with [facility] but was unable to get through to schedule an appointment prior to todays visit. She did have lab drawn in May (2021) when she was seen in the ER. I did recommend that she have her cholesterol level checked at some point. She voices that she is going to try and call again and see if she can get an appointment for this weekend 11-30-21. She voices that she got bit by a mosquito on her neck about a month ago and the following day she had large lumps on her neck. I did explain to her that this was likely an enlarged lymph node reacting to the bite. Nothing abnormal was noted on exam today. [facility] Other 06-15-2022 Evaluation note* Encounter Date Diagnosis Assessment Notes Treatment Notes Treatment Clinical Notes Sep, Hypertension, unspecified type (ICD-10 - I10) [facility] Other 04-18-2022 Evaluation note* Encounter Date Diagnosis Assessment Notes Treatment Notes Treatment Clinical Notes Jul, Hypertension, unspecified type (ICD-10 - I10) [facility] Other 02-17-2022 Evaluation note* Encounter Date Diagnosis Assessment Notes Treatment Notes Treatment Clinical Notes May, Palpitation (ICD-10 - R00.2) She voices that on an average day it is normal for her to have some palpitations. The day she went to the ER she noticed them more frequently, and they were more noticeable. She went to the ER for evaluation. Her blood pressure was elevated when seen at the ER. The ER discussed her having an outpatient holter monitor done, she voices that she had one done years ago. She believes she had an echo done years ago as well which showed a hole in her heart that should have closed at but hers did not and a heart cath was done but she was told the hole was not large enough to do anything. She was told she had mitral valve prolapse when she was with her daughter but she does not recall how this was diagnosed. We discussed that a Holter monitor is used for either 24 or 48 hours and is read by a medical billing representative and it may not catch anything. She does not have any insurance at this time. There is an event recorder which is used for 21 or 30 days which is similar to a Holter monitor but records for a longer period of time and more likely to catch what she is feeling. She just feels a flip flop her heart does not take off. It will happen and sometimes it is stronger than other times, and then it may not happen for a few days. She does not notice any relation to stress, tobacco use or caffeine. She can be sitting down, watching TV or up and about or even when waiting to fall asleep. We did provide her with an order to have an echo done when she was last seen but today I provided her with a community outreach handout where she can have an echo done in July at a very affordable [facility]. She voices that she will have the echocardiogram done. She should avoid caffeine, alcohol, stress, anything that would contribute to palpitations. May, Hypertension, unspecified type (ICD-10 - I10) Today her blood pressure was elevated at 158/92. She is on 3 different classes of medication. I would like to increase her dose of Valsartan to see if we can get better blood pressure control. She is in agreement. Guidance is given on how to take the Valsartan. She is going to have an echocardiogram done through community outreach. Anticipate that the increase in Valsartan will help gain better blood pressure control. If she does get on Medicaid we may refer her to a medical billing representative. May, Cystitis (ICD-10 - N30.90) She voices that she is currently being treated with Keflex for a urinary tract infection. May, Snoring (ICD-10 - R06.83) She voices that the other night her told her that she was snoring during the night which she does not normally do. [facility] Other 01-27-2022 Evaluation note* Encounter Date Diagnosis Assessment Notes Treatment Notes Treatment Clinical Notes Apr, Tooth abscess (ICD-10 - K04.7) Apr, Cough (ICD-10 - R05.9) Apr, Sinus congestion (ICD-10 - R09.81) Apr, Sinus drainage (ICD-10 - J34.89) [facility] Other 01-19-2022 Evaluation note* Encounter Date Diagnosis Assessment Notes Treatment Notes Treatment Clinical Notes Apr, Hypertension, unspecified type (ICD-10 - I10) She voices that she could feel her blood pressure going up when she was on her way to her appointment today. Her blood pressure in the office was 164/108. She denies any signs/symptoms of low blood pressure. As soon as she checks her blood pressure on her own she becomes nervous and can feel her pressure going up. We discussed that weight loss would help to lower her blood pressure. She voices that she has not been taking the HCTZ since last seen because she thought it was in the Tenormin. I do recommend that she take the medication daily. I would like to increase her Valsartan dose to 160 MG daily to help gain better blood pressure control. She can take two of the Valsartan 80 MG tablets together until she runs out and then should fill the Valsartan 160 MG daily. I did recommend that she have blood work drawn two weeks after she increases her Valsartan dose to check her potassium. She is going to have lab drawn through the [facility] outreach program and does not need an order. I did check her blood pressure myself and prior to this she voiced that she could already feel her blood pressure going up. I got a reading of 162/100. I suspect she has white coat hypertension. Will raise the Valsartan dose. Apr, Anxiety (ICD-10 - F41.9) She did increase her Prozac dose since last seen, overall she feels it has helped but admits to still being nervous and feels tense. She is going to continue with the Prozac. An OARRS report was reviewed no discrepancies noted. Side effects/risks/benefi ts of medication were reviewed. She has taken more Xanax than she would like to. Her uncle and she had to attend his last week. She does want to have the Xanax available if needed. I will have to see her back in three months. Frequent appointments needed due to addiction potential of medication. Apr, Mitral valve prolapse (ICD-10 - I34.1) She did not have the echocardiogram done because she did not have the order. I do want her to get this done so I provided her with an order for this. Apr, Hyperglycemia (ICD-10 - R73.9) She will be having lab drawn through the [facility] outreach program in early May (2021) Apr, Weight gain (ICD-10 - R63.5) She has gained weight since last seen but overall had lost weight. She voices that she had lost thirty pounds in nine months on her own. 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 We discussed that some people who have this issue can feel chest pain. She was seen in the ER last week (03-20-21) she did buy a blood pressure monitor and began checking her monitor on her own with readings in the 160 over 80-90's. If she is not busy she can sometimes feels her heart flutter. She increased her Tenormin dose to 2 together once a day since last week. She had a normal sinus rhythm EKG done in the ER on 03-20-21. While in the office she checked her blood pressure in the left arm with her machine and it read 125/72. I checked her blood pressure in the right arm and got a reading of 160/102. I did have her repeat the blood pressure in the left arm and she got a reading of 184/101 which was similar to what I got. We need to get her blood pressure under better control. I do want her to continue with the Tenormin, two per day and explained that this medication keeps the body calm and if we take her off this her blood pressure may go up even higher. I would like to add medication to the HCTZ to help gain better control. I am going to add Valsartan 80 MG daily along with the HCTZ. Two weeks after starting the Valsartan she should have lab drawn to be sure that the medication is not affecting her potassium. She can obtain the lab through the [place] direct access lab. She is to continue to monitor her blood pressure on her own and track readings. We discussed ordering an echocardiogram to evaluate the mitral valve prolapse, she does not have insurance. She can take the order and find out where she can have it done. Mar, Anxiety (ICD-10 - F41.9) She voices that her anxiety has been high this year, she began caring for her dad in the spring, and he last month. Her has health issues that she worries about as well. She tries to stay busy. She would like to have Xanax on hand to use if needed. An OARRS report was attempted, patient was found but no prescriptions were found. She will need to be seen in three months. Side effects/risks/benefi ts of medication were reviewed. Frequent appointments needed due to addiction potential of medication. She feels the Prozac dose could be increased until she gets through the grieving process. Guidance is given on how to take the increased dose. She can take 2 of the 20 MG capsules together until she runs low and then can fill the 40 MG and take 1 capsule together. She should save some of the 20 MG capsules incase she wants to come back down to 20 MG in the future. Mar, Hyperglycemia (ICD-10 - R73.9) When she was in the ER on 03-20-21 her glucose level was elevated at 183. I did recommend that she have an A1C drawn. I provided her with a copy of direct access lab testing that is available through the [place] lab and asked her to have an A1C level drawn soon. She can call for the results. Mar, Mitral valve prolapse (ICD-10 - I34.1) Mar, Weight loss (ICD-10 - R63.4) She has lost 22 pounds since last seen in the office. She has been watching more of what she eats and when she eats. She is going to compare this to her scale at home. She eats one meal per day. I do want to see what her A1C is, explained to her that sometimes uncontrolled blood sugar can make one lose weight. [facility] Other Evaluation noteNo assessment information available [facility] Work Phone: Evaluation noteNo InformationNorth [facility] Other Evaluation note* Diagnosis Onset Date Resolution Status Hyperglycemia acute Hypertension acute Intentional weight loss acut e [facility] Work Phone: History general Narrative - Reported* Type Description Date Medical History 2006 pelvic exam Medical History 2006 mammogram Medical History 2004 colonscopy Medical History no ct scan Surgical History x 3 1988, 1989, 199 2 Surgical History heart cath 1989 Hospitalization History childbirth Hospitalization History toxiemia [facility] Other Hospital [facility] Work Phone: Reason for visit Narrativereview community outreach labs/med refillRigel [facility] Other Rehwut for visit Narrativemed refill/review community outreach [employer] [facility] Other Summary Purpose Family History Relationship Condition Age at Onset Recorded Date/T laurel father Heart disease Unknown Unknown grandparent Unknown grandparent Malignant neoplasm Unknown Not Specified Unknown Relationship Condition Age at Onset Recorded Date/T laurel father Heart disease Unknown Unknown grandparent Unknown grandparent Malignant neoplasm Unknown mother Unknown Advance Directives Advance Directive Response Recorded Date/ Time Advance Directives No March 20, 2021 3:34pm Advance Directive Response Recorded Date/ Time Advance Directives No August 21, 2023 10:14am Chief Complaint and Reason for Visit Chief Complaint chest pain, high bp Screening Chief Complaint Amb Documentation Amb Documentation BP/ER f/u discuss A1C/medication Reason for Visit Anxiety Epistaxis Hyperglycemia Hypertension Palpitations Weight loss Diabetes type 2, uncontrolled Chief Complaint review lab (A1C) Reason for Visit Hyperglycemia Hypertension Intentional weight loss Additional Source Comments INFORMATION SOURCE (unrecogn ized section and content) DATE CREATED AUTHOR 06/08/2018 [facility] DATE CREATED AUTHOR AUTHOR'S ORGANIZ ATION 06/21/2023 [facility] Care Teams (unrecognized sec tion and content) Team Status: Inactive Member Role Status Dates Lianna Vines DO Primary Care Provider Active Carlota Ravi APRN Emergency Provider Active Team Status: Inactive Member Role Status Dates Lianna Vines DO Primary Care Provider Active [employer] Attending Provider Active Team Status: Active Member Role Status Dates Lianna Girvin , DO Primary Care Provider Active Team Status: Active Member Role Status Juanita Vines DO Primary Care Provide r, Attending Provider Active Start: June 10, 2023 Team Status: Active Member Role Status Juanita Vines DO Primary Care Provider Active S tart: June 10, [address] LPN Attending Provider Active art: June 10, 2023 Team Status: Active Member Role Status Juanita Vines DO Primary Care Provider Active S tart: June 11, [address] LPN Attending Provider Active St art: June 11, 2023 Team Status: Inactive Member Role Status Juanita Vines DO Primary Care Provide r, Attending Provider Active Start: June 19, 2023 End: June 19, 2023 Team Status: Active Member Role Status Juanita Vines DO Primary Care Provide r, Attending Provider Active Start: August 15, 2023 Team Status: Inactive Member Role Status Juanita Vines DO Primary Care Provide r, Attending Provider Active Start: August 21, 2023 End: August 21, 2023 Team Status: Active Member Role Status Juanita Vines DO Primary Care Provide r, Attending Provider Active Start: November 18, 2023 Team Status: Inactive Member Role Status Juanita Vines DO Primary Care Provide r, Attending Provider Active Start: November 24, 2023 End: November 24, 2023 Goals (unrecognized section and content) Goals may be documented in a n alternate sectionNo InformationNo InformationNo InformationNo InformationNo InformationNo InformationNo InformationNo InformationNo InformationNo InformationNo InformationNo InformationNo InformationNo InformationNo InformationNo InformationNo InformationNo InformationNo InformationNo InformationNo InformationNo InformationGoals may be documented in an alternate sectionGoals may be documented in an alternate section REASON FOR VISIT (unrecogniz ed section and content) refillER f/u chest pain6 wk recheck/BPClinicalER f/u apptER f/u palpitationsO[facility] [place] ERrefillClinical Acute MedicinerefillClinicalRefillsmed refill/review vascular screening resultsrefillMammogramRefillsmed refillRefillrefillrefill FOR RECORDS PERTAINING TO PATIENTS WHO ARE OR HAVE BEEN ENROLLED IN A CHEMICAL DEPENDENCY/SUBSTANCEABUSE PROGRAM, SOME INFORMATION MAY BE OMITTED. This clinical summary was aggregated from multiple sources. Caution should be exercised in using it in the provision of clinical care. This summary normalizes information from multiple sources, and as a consequence, information in this document may materially change the coding, format and clinical context of patient data. In addition, data may be omitted in some cases. CLINICAL DECISIONS SHOULD BE BASED ON THE PRIMARY CLINICAL RECORDS. [facility] [employer] [facility]. provides no warranty or guarantee of the accuracy or completeness of information in this document.
--- NOTE | 2024-04-07 18:05 | ED_ITS ---
HPI HPI - General Adult General Chief complaint: Syncope Stated complaint: Syncope Time Seen by Provider: 04/07/24 17:49 Source: patient Mode of arrival: ambulance Limitations: no limitations History of Present Illness HPI narrative: The patient is coming to the ER with her almost 1 to 2 days history of runny nose associated with feeling drained and low appetite, the patient apparently ju st before arrival she had a meal and after she ate she felt that she is drained more and she is going to pass out, the EMS was called because according to the who is not at the bedside she passed out for few seconds,, there was no incontinence of urine or stool there was no recorded tongue biting, by the time the EMS arrived the patient blood sugar was around 150 and vitals were within normal The patient mentioned that she does not remember passing out but she just remembered that she is drained and feels like she is going to pass out Related Data Home Medications ?Medication ?Instructions ?Recorded ?Confirmed atenolol 100 mg tablet 100 mg PO Q12H 06/10/23 04/07/24 hydrochlorothiazide 25 mg tablet 25 mg PO Q24H 06/10/23 04/07/24 valsartan 320 mg tablet 320 mg PO DAILY 04/07/24 04/07/24 Previous Rx's ?Medication ?Instructions ?Recorded guaifenesin 600 mg tablet, 600 mg PO BID PRN congestion #10 04/07/24 extended release 12 hr (Mucinex) tabs ondansetron 4 mg disintegrating 4 mg PO Q8H PRN nausea and 04/07/24 tablet vomiting 4 days #10 tabs Allergies Allergy/AdvReac Type Severity Reaction Status Date / Time ketorolac (From Toradol) AdvReac Mild hot flash Verified 06/10/23 14:10 Penicillins AdvReac Unknown Verified 06/10/23 14:10 Opioid HPI Opioid Management Most Recent Opioid Data: No Data to Display Review of Systems ROS Status of ROS 10 or more systems reviewed and unremark able except as noted in history and below PFSH PFSH Social History Smoking status: Former smoker Little interest or pleasure in doing things: not at all Feeling down, depressed, or hopeless: not at all Exam Narrative Exam Narrative: Nurses notes and vital signs reviewed and patient is not hypoxic. General: Well-appearing and in no apparent distress. Tired Skin: Warm, dry, no pallor noted. No rash. Head: Normocephalic, atraumatic. Neck: Supple, non-tender. Eye: Pupils are equal, round and EOMI. No scleral icterus. Ears, Nose, Mouth, and Throat: TM are clear, congested nasal mucosa noted and the malar flush, oral mucosa is moist, no posterior oropharynx erythema, uvula is mid-line Cardiovascular: Regular Rate and Rhythm without murmur, gallop or rub. Respiratory: No accessory muscle use or respiratory distress. Lungs are clear to auscultation, no wheezing, rales or rhonchi Chest Wall: no tenderness Back: No midline thoracic or lumbar vertebral tenderness. No CVA tenderness Musculoskeletal: normal ROM, no calf or popliteal tenderness, no lower extremity edema/swelling GI: Abdomen is soft, non-distended. Normal bowel sounds. No masses appreciated. No tenderness to palpation. No rebound, guarding, or rigidity noted. Neurological: A&O x4. No cranial nerve dysfunction observed. No truncal ataxia. Moves all extremities. Sensation intact. Psychiatric: Cooperative and interactive. Normal mood and affect. Constitutional Vital Signs, click to edit/add: Last Vital Signs Temp 98.7 F 04/07/24 17:48 Pulse 76 04/07/24 17:48 Resp 18 04/07/24 17:48 BP 129/89 04/07/24 17:48 Pulse Ox 96 04/07/24 17:48 O2 Del Method Room Air 04/07/24 17:48 Course Vital Signs Vital signs: Vital Signs Temperature 98.7 F 04/07/24 17:48 Pulse Rate 76 04/07/24 17:48 Respiratory Rate 18 04/07/24 17:48 Blood Pressure 129/89 04/07/24 17:48 Pulse Oximetry 96 04/07/24 17:48 Oxygen Delivery Method Room Air 04/07/24 17:48 Temperature 98.7 F 04/07/24 17:48 Pulse Rate 76 04/07/24 17:48 Respiratory Rate 18 04/07/24 17:48 Blood Pressure 129/89 04/07/24 17:48 Pulse Oximetry 96 04/07/24 17:48 Oxygen Delivery Method Room Air 04/07/24 17:48 Medical Decision Making MDM Narrative Medical decision making narrative: Patient EKG showing sinus rhythm with a heart rate of [address] elevation or depression The patient CBC showed no acute significant pathology and your COVID test is positive and that can explain why the patient is having those symptoms of being tired and no appetite for the last 24 hours The patient right now is vitally stable since she arrived and that she is just tired want to sleep The patient troponin is negative and the chemistry showed no acute significant pathology except for mild low sodium I did explain to the patient right now supportive care to be continued at home in case any new symptoms she is to come back to the ER I can give her some nausea medication to make sure that she is not getting get dehydrated The patient is to follow up with primary care physician in next 2-3 days or to return to the emergency department should any of the signs or symptoms worsen or new symptoms develop. The patient agrees with the following Diagnosis and Treatment plan and the patient will be discharged home. Lab Data Labs: Lab Results 04/07/24 04/07/24 Range/Units 17:58 18:00 WBC 9.2 (4.0-11.0) 10^3/uL RBC 4.14 L (4.20-5.40) 10^6/uL Hgb 13.4 (12.0-16.0) g/dL Hct 39.5 (36.0-48.0) % MCV 95.4 (81.0-99.0) fL MCH 32.4 (26.7-34.0) pg MCHC 33.9 (29.9-35.2) g/dL RDW 12.0 (11.0-15.0) % Plt Count 205 (150-450) 10^3/uL MPV 12.5 (9.5-13.5) fL Neut % (Auto) 76.7 H (43.0-75.0) % Lymph % (Auto) 11.7 L (20.5-60.0) % [place] % (Auto) 10.8 (1.7-12.0) % Eos % (Auto) 0.3 L (0.9-7.0) % Baso % (Auto) 0.3 (0.2-2.0) % Neut # (Auto) 7.0 H (1.4-6.5) 10^3/uL Lymph # (Auto) 1.1 L (1.2-3.8) 10^3/uL [place] # (Auto) 1.0 H (0.3-0.8) 10^3/uL Eos # (Auto) 0.0 (0.0-0.7) 10^3/uL Baso # (Auto) 0.0 (0.0-0.1) 10^3/uL Abs Immat Gran (auto) 0.02 (0.00-0.03) 10^3/uL Imm/Tot Granulo (auto) 0.2 (0.0-0.5) % PT 11.0 (9.0-11.6) sec INR 1.04 Sodium 134 L (136-145) mmol/L Potassium 3.5 (3.5-5.1) mmol/L Chloride 99 (98-107) mmol/L Carbon Dioxide 26.0 (21.0-32.0) mmol/L Anion Gap 12.5 BUN 12.0 (7.0-18.0) mg/dL Creatinine 0.90 (0.55-1.02) mg/dL Est GFR ( Amer) >60 (>=60 mL/min/1.73m^2) Est GFR (Non-Af Amer) >60 (>=60 mL/min/1.73m^2) BUN/Creatinine Ratio 13.3 Glucose 158 H (74-106) mg/dL Calcium 8.9 (8.5-10.1) mg/dL Magnesium 2.0 (1.8-2.4) mg/dL Total Bilirubin 0.8 (0.2-1.0) mg/dL AST 18 (15-37) U/L ALT 21 (14-59) U/L Alkaline Phosphatase 68 (46-116) U/L Troponin I High Sens 6.9 (4.0-51.3) pg/mL Total Protein 7.5 (6.4-8.2) g/dL Albumin 3.4 (3.4-5.0) g/dL Globulin 4.1 g/dL Albumin/Globulin Ratio 0.8 Ethanol Quant <3 mg/dL SARS-CoV-2 Ag (CV2AG) Positive A (NEGATIVE) Discharge Plan Discharge Chief Complaint: Syncope Clinical Impression: COVID-19 Patient Disposition: Home, Self-Care Time of Disposition Decision: 18:16 Condition: Good Prescriptions / Home Meds: New ondansetron 4 mg tablet,disintegrating 4 mg PO Q8H PRN (Reason: nausea and vomiting) 4 Days Qty: 10 0RF guaifenesin [Mucinex] 600 mg tablet extended release 12hr 600 mg PO BID PRN (Reason: congestion) Qty: 10 0RF No Action atenolol 100 mg tablet 100 mg PO Q12H hydrochlorothiazide 25 mg tablet 25 mg PO Q24H valsartan 320 mg tablet 320 mg PO DAILY Print Language: Citizen [place] Instructions: COVID-19 (Coronavirus Disease 2019) (ED) Referrals: LIANNA VINES [Primary Care Provider] - 1 week
[2024-04-07 18:08] LABS: Basophils Percent Auto 0.3 % (0.2-2.0); Eosinophils Percent Auto 0.3 % (0.9-7.0); Hematocrit 39.5 % (36.0-48.0); Hemoglobin 13.4 g/dL (12.0-16.0); Immature Granulocytes Abs Auto 0.02 10^3/uL (0.00-0.03); Immature Granulocytes Pct Auto 0.2 % (0.0-0.5); Lymphocytes Absolute Auto 1.1 10^3/uL (1.2-3.8); Lymphocytes Percent Auto 11.7 % (20.5-60.0); Mean Corpuscular HGB Conc 33.9 g/dL (29.9-35.2); Mean Corpuscular Hemoglobin 32.4 pg (26.7-34.0); Mean Corpuscular Volume 95.4 fL (81.0-99.0); Mean Platelet Volume 12.5 fL (9.5-13.5); Monocytes Percent Auto 10.8 % (1.7-12.0); Neutrophils Percent Auto 76.7 % (43.0-75.0); Platelet Count 205 10^3/uL (150-450); Red Blood Count 4.14 10^6/uL (4.20-5.40); White Blood Count 9.2 10^3/uL (4.0-11.0)
[2024-04-07 18:16] LABS: Internal Control Within Normal Limits
[2024-04-07 18:17] LABS: SARS-CoV-2 Ag POSITIVE (NEGATIVE)
[2024-04-07 18:17] LABS: Ethanol <3 mg/dL
[2024-04-07 18:21] LABS: INR 1.04
[2024-04-07 18:25] LABS: Alanine Aminotransferase 21 U/L (14-59); Albumin Globulin Ratio 0.8; Albumin Level 3.4 g/dL (3.4-5.0); Alkaline Phosphatase 68 U/L (46-116); Anion Gap 12.5; Aspartate Amino Transferase 18 U/L (15-37); BUN Creatinine Ratio 13.3; Bilirubin Total 0.8 mg/dL (0.2-1.0); Calcium 8.9 mg/dL (8.5-10.1); Chloride 99 mmol/L (98-107); Estimated GFR (African America >60 (>=60 mL/min/1.73m^2); Estimated GFR (Non-African Ame >60 (>=60 mL/min/1.73m^2); Globulin 4.1 g/dL; Glucose 158 mg/dL (74-106); Potassium 3.5 mmol/L (3.5-5.1); Sodium 134 mmol/L (136-145); Total Protein 7.5 g/dL (6.4-8.2); Troponin I High Sensitivity 6.9 pg/mL (4.0-51.3)
[2024-04-07 18:34] VITALS: PULSE 75
[2024-04-07] MEDS: ONDANSETRON PF 4 MG/2 ML VIAL IV (18:39)
== END 2024-04-07 19:06 | disposition home or self-care (01) ==
PROVIDERS: Emergency Provider Emergency Medicine; PCP Family Medicine
DX: U07.1 COVID-19 (principal); Z87.891 Personal history of nicotine dependence
CPT/HCPCS: 36415; 80053; 80307; 80320; 83735; 84484; 85025; 85610; 87811; 93005; 96374; 99285; J2405